=== PATIENT | female | born 1955 | race Caucasian/White ===

== ENCOUNTER 2019-08-25 14:39 | Outpatient (CLI) | payer MEDICARE, SELFPAY ==
--- NOTE | ~2019-08-25 | MM_ITS ---
EXAMINATION: MM screening rigo BI w braulio HISTORY: Screening mammogram, family history of breast cancer in her mother. TECHNIQUE: Craniocaudal and mediolateral oblique 3-D tomosynthesis images were obtained and synthetic 2-D images were generated. CAD analysis was submitted and interpreted. COMPARISON: 03/21/2018, 02/28/2018, 02/13/2017, 11/25/2015 BREAST PARENCHYMAL COMPOSITION: There are scattered areas of fibroglandular density. FINDINGS: There is no evidence of suspicious mass, calcification, or architectural distortion to sugg est malignancy in either breast. There has been no suspicious interval change. IMPRESSION: 1. No mammographic evidence of malignancy. 2. Recommend routine screening mammography in one year. Of note, patient is overdue for six month ult rasound follow-up of probably benign sonographically detected left breast masses. BI-RADS Category 1: Negative Reviewed, dictated and finalized at location A. IMPRESSION: 1. No mammographic evidence of malignancy. 2. Recommend routine screening mammography in one year. Of note, patient is ove rdue for six month ultrasound follow-up of probably benign sonographically dete cted left breast masses. BI-RADS Category 1: Negative
== END 2019-08-25 14:40 | disposition home or self-care (01) ==
PROVIDERS: PCP Internal Medicine; Visit Provider Internal Medicine
DX: Z12.31 Encounter for screening mammogram for malignant neoplasm of breast (principal)
CPT/HCPCS: 77063; 77067

== ENCOUNTER 2019-09-28 11:04 | Outpatient (CLI) | payer MEDICARE, SELFPAY ==
--- NOTE | ~2019-09-28 | US_ITS ---
US breast LT limited 09/28/2019 11:47 Indication: Follow-up left breast mass Procedure: High-resolution ultrasound of the left breast Comparison: Comparison to multiple prior studies sequentially, with oldest reviewed study dated 05/2018. Findings: There is a 2 mm cyst at left breast at 2:00, 3 cm from the nipple. At 2:00, 5 cm from the n ipple there is an oval hypoechoic nodule measuring 3 mm, without significant change from prior studie s. Impression: 1: Stable benign appearing left breast masses dating back to 03/31/2018. No sonographic evidence for m alignancy. Routine yearly screening mammogram and regular clinical breast examination are recommended. BI-RADS CATEGORY 2 - BENIGN FINDINGS Reviewed, dictated and finalized at location A. Impression: 1: Stable benign appearing left breast masses dating back to 03/31/2018. No sono graphic evidence for malignancy. Routine yearly screening mammogram and regular clinical breast examination are recommended. BI-RADS CATEGORY 2 - BENIGN FINDINGS
== END 2019-09-28 11:05 | disposition home or self-care (01) ==
PROVIDERS: PCP Internal Medicine; Visit Provider Internal Medicine
DX: R92.8 Other abnormal and inconclusive findings on diagnostic imaging of breast (principal)
CPT/HCPCS: 76642

== ENCOUNTER 2020-03-12 08:49 | Outpatient (CLI) | payer MEDICARE, SELFPAY ==
--- NOTE | ~2020-03-12 | DEXA_ITS ---
Bone Density Report Name: Cassandra Eddy Age: 65 Sex: Female Ethnicity: Black Date of : 1955 Indication: postmenopausal; height loss; prior fracture; Referring Provider: JACKIE BURKS Study: Bone densitometry was performed. Exam Date: March 12, 2020 Accession number: [id number] Bone Density: Region BMD T-score Z-score Classification AP Spine (L1, L2, L3) 1.405 3.5 4.7 Normal World Health Organization criteria for BMD impression classify patients as: Normal (T-score at or above -1.0), Osteopenia (T-score between -1.0 and -2.5), or Osteoporosis (T-score at or below -2.5). Previous Exams: Region Exam Age BMD T-score BMD Change BMD Change Date g/cm2 vs Baseline vs Previous AP Spine(L1, L2, L3) 03/12/2020 65 1.405 3.5 -0.031(-2.1%)# -0.101(-6.7%)* 02/28/2018 62 1.506 4.4 0.070(4.9%)# 0.070(4.9%)# 07/05/2009 54 1.436 3.8 *Denotes significance at 95% confidence level, LSC for AP Spine = 0.022 g/cm2 Clinical Information Provided by Patient: Have had a previous hip or vertebral fracture Has had a low trauma fracture Patient maximum height was 66 Menopause Age: 54 No regular weight bearing exercise Onset of menses at age 10 Number of children 3 Impression: The patient has normal bone mass. The patient has risk factors, including: previous fracture. The BMD for the AP Spine(L1, L2, L3) decreased, changing by -6.7% since the last DXA exam. Discussion: INCREASED RISK OF FRACTURE DUE TO HISTORY OF FRACTURE. The patient's previous fracture puts the patient at high risk of a future fracture. In untreated patients, the risk of osteoporotic fracture increases approximately two-fold for each 1.0 SD decrease in T-score. Low bone density is not the only risk factor for fracture; also consider factors such as patient's age, frailty or poor health, risk of falling, risk of injury, previous osteoporotic fracture, family history of osteoporosis, cigarette smoking, low body weight, etc. Not everyone with a low trauma fracture has osteoporosis; osteomalacia and other metabolic bone disorders should also be considered. Patients who have osteoporosis should be evaluated for specific diseases and conditions (secondary causes) that may cause or contribute to bone loss and fracture risk. National Osteoporosis Foundation (NOF) recommends pharmacologic intervention for patients with a prior hip or vertebral fracture regardless of BMD T-score. The patient should follow a healthful lifestyle (good nutrition with adequate calcium and vitamin D, and appropriate weight-bearing exercise). Follow-Up: Consider a repeat BMD and Vertebral Fracture Assessment (VFA) exam in 2 years or sooner if medically necessary, to reassess this patient's status.
== END 2020-03-12 08:50 | disposition home or self-care (01) ==
LOC: ANHIMG 08:53
PROVIDERS: PCP Internal Medicine; Visit Provider Obstetrics & Gynecology
DX: Z78.0 Asymptomatic menopausal state (principal)
CPT/HCPCS: 77080

== ENCOUNTER 2020-08-29 15:51 | Outpatient (CLI) | payer MEDICARE, SELFPAY ==
--- NOTE | ~2020-08-29 | MM_ITS ---
EXAMINATION: MM screening rigo BI w braulio HISTORY: Screening mammogram, family history of breast cancer in her mother. TECHNIQUE: Craniocaudal and mediolateral oblique 3-D tomosynthesis images were obtained and synthetic 2-D images were generated. CAD analysis was submitted and interpreted. COMPARISON: 08/25/2019, 03/21/2018, 02/28/2018, 02/13/2017 BREAST PARENCHYMAL COMPOSITION: There are scattered areas of fibroglandular density. FINDINGS: There is no evidence of suspicious mass, calcification, or architectural distortion to sugg est malignancy in either breast. There has been no suspicious interval change. IMPRESSION: 1. No mammographic evidence of malignancy. 2. Recommend routine screening mammography in one year. BI-RADS Category 1: Negative Reviewed, dictated and finalized at location A.
== END 2020-08-29 15:52 | disposition home or self-care (01) ==
LOC: ANHIMG 15:54
PROVIDERS: PCP Internal Medicine; Visit Provider Obstetrics & Gynecology
DX: Z12.31 Encounter for screening mammogram for malignant neoplasm of breast (principal)
CPT/HCPCS: 77063; 77067

== ENCOUNTER 2021-11-05 14:27 | Outpatient (CLI) | payer MEDICARE, SELFPAY ==
--- NOTE | ~2021-11-05 | MM_ITS ---
EXAMINATION: MM screening rigo BI w braulio HISTORY: Screening mammogram, family history of breast cancer in her mother. TECHNIQUE: Craniocaudal and mediolateral oblique 3-D tomosynthesis images were obtained and synthetic 2-D images were generated. CAD analysis was submitted and interpreted. COMPARISON: 08/29/2020, 08/25/2019 BREAST PARENCHYMAL COMPOSITION: There are scattered areas of fibroglandular density. FINDINGS: Scattered benign-appearing calcifications are present. There is no suspicious mass, calcifi cation, or architectural distortion to suggest malignancy in either breast. There has been no suspici ous interval change. IMPRESSION: 1. No mammographic evidence of malignancy. 2. Recommend routine screening mammography in one year. BI-RADS Category 2: Benign finding(s). Reviewed, dictated and finalized at location A.
== END 2021-11-05 14:28 | disposition home or self-care (01) ==
PROVIDERS: PCP Internal Medicine; Visit Provider Obstetrics & Gynecology
DX: Z12.31 Encounter for screening mammogram for malignant neoplasm of breast (principal)
CPT/HCPCS: 77063; 77067

== ENCOUNTER 2022-09-07 14:54 | Outpatient (CLI) | payer MEDICARE, SELFPAY ==
--- NOTE | ~2022-09-07 | DEXA_ITS ---
Bone Density Report Name: JEANCARLOS LONDONO Age: 67 Sex: Female Ethnicity: Black Date of : 1955 Indication: postmenopausal; screening for osteoporosis; height loss; prior fracture; cancer; Referring Provider: JACKIE BURKS Study: Bone densitometry was performed. Exam Date: September 07, 2022 Accession number: [id number] Bone Density: Region BMD T-score Z-score Classification AP Spine(L1, L2, L3) 1.441 3.8 5.2 Normal World Health Organization criteria for BMD impression classify patients as: Normal (T-score at or above -1.0), Osteopenia (T-score between -1.0 and -2.5), or Osteoporosis (T-score at or below -2.5). Previous Exams: Region Exam Age BMD T-score BMD Change BMD Change Date g/cm2 vs Baseline vs Previous AP Spine (L1-L3) 09/07/2022 67 1.441 3.8 -0.064 (-4.3%) 0.037 (2.6%)* 03/12/2020 65 1.405 3.5 -0.101 (-6.7%) -0.101 (-6.7%) 02/28/2018 62 1.506 4.4 *Denotes significance at 95% confidence level, LSC for AP Spine = 0.022 g/cm2 Clinical Information Provided by Patient: Have had a previous hip or vertebral fracture Has had a low trauma fracture Has used the following medications: Calcium Has the following medical conditions: Cancer Patient maximum height was 66 Menopause Age: 53 Does not regularly consume dairy products Onset of menses at age 10 Number of children 3 Impression: The patient has normal bone mass. The patient has risk factors, including: previous fracture. No significant bone loss was observed. Discussion: INCREASED RISK OF FRACTURE DUE TO HISTORY OF FRACTURE. The patient's previous fracture puts the patient at high risk of a future fracture. In untreated patients, the risk of osteoporotic fracture increases approximately two-fold for each 1.0 SD decrease in T-score. Low bone density is not the only risk factor for fracture; also consider factors such as patient's age, frailty or poor health, risk of falling, risk of injury, previous osteoporotic fracture, family history of osteoporosis, cigarette smoking, low body weight, etc. Not everyone with a low trauma fracture has osteoporosis; osteomalacia and other metabolic bone disorders should also be considered. Patients who have osteoporosis should be evaluated for specific diseases and conditions (secondary causes) that may cause or contribute to bone loss and fracture risk. National Osteoporosis Foundation (NOF) recommends pharmacologic intervention for patients with a prior hip or vertebral fracture regardless of BMD T-score. The patient should follow a healthful lifestyle (good nutrition with adequate calcium and vitamin D, and appropriate weight-bearing exercise). Follow-Up: Consider a repeat BMD and Vertebral Fracture Assessment (VFA) exam in 2 ye
== END 2022-09-07 14:55 | disposition home or self-care (01) ==
PROVIDERS: PCP Internal Medicine; Visit Provider Obstetrics & Gynecology
DX: Z78.0 Asymptomatic menopausal state (principal)
CPT/HCPCS: 77080

== ENCOUNTER → 2022-11-11 13:20 | Outpatient (CLI) | payer MEDICARE, SELFPAY ==
--- NOTE | ~2022-11-11 | MM_ITS ---
EXAMINATION: MM screening rigo BI w braulio HISTORY: Screening mammogram TECHNIQUE: Craniocaudal and mediolateral oblique 3-D tomosynthesis images were obtained and synthetic 2-D images were generated. CAD analysis was submitted and interpreted. COMPARISON: 11/05/2021, 08/29/2020 bilateral screening mammogram examinations BREAST PARENCHYMAL COMPOSITION: There are scattered areas of fibroglandular density. FINDINGS: Scattered bilateral benign calcifications are again noted. There is no evidence of suspicio us mass, calcification, or architectural distortion to suggest malignancy in either breast. There has been no suspicious interval change. IMPRESSION: 1. No mammographic evidence of malignancy. 2. Recommend routine screening mammography in one year. BI-RADS Category 2: Benign finding(s). Reviewed, dictated and finalized at location A.
== END ==
PROVIDERS: PCP Internal Medicine; Visit Provider Obstetrics & Gynecology
DX: Z12.31 Encounter for screening mammogram for malignant neoplasm of breast (principal)
CPT/HCPCS: 77063; 77067

== ENCOUNTER 2023-12-20 15:23 | Outpatient (CLI) | payer MEDICARE, SELFPAY ==
--- NOTE | ~2023-12-20 | MM_ITS ---
EXAMINATION: MM screening rigo BI w braulio HISTORY: Screening TECHNIQUE: Craniocaudal and mediolateral oblique 3-D tomosynthesis images were obtained and synthetic 2-D images were generated. CAD analysis was submitted and interpreted. COMPARISON: Comparison to multiple prior studies sequentially, with oldest reviewed study dated 02/28. BREAST PARENCHYMAL COMPOSITION: Not dense: There are scattered areas of fibroglandular density. FINDINGS: There is no evidence of suspicious mass, calcification, or architectural distortion to sugg est malignancy in either breast. There has been no suspicious interval change. IMPRESSION: 1. No mammographic evidence of malignancy. 2. Recommend routine screening mammography in one year. BI-RADS Category 1: Negative Reviewed, dictated and finalized at location B. [employer]
== END 2023-12-20 15:24 | disposition home or self-care (01) ==
LOC: ANHIMG 15:25
PROVIDERS: PCP Internal Medicine; Visit Provider Obstetrics & Gynecology
DX: Z12.31 Encounter for screening mammogram for malignant neoplasm of breast (principal)
CPT/HCPCS: 77063; 77067

== ENCOUNTER 2024-06-15 13:40 | Outpatient (CLI) | payer MEDICARE, SELFPAY ==
--- NOTE | ~2024-06-15 | CT_ITS ---
CT Scan of the Chest without Contrast: Clinical Indication: Pneumoconiosis, asbestos exposure Technique: Contiguous sections were acquired throughout the chest without intravenous contrast. Dose reduction technique was used on this scan by utilizing automated exposure control and iterative recon struction technique. The dose-length product (DLP) was 131.35 mGy-cm. Findings: There is no evidence of any significant mediastinal, hilar or axillary lymphadenopathy. Coronary vinita ry calcification present. There is no evidence of pleural or pericardial effusion. The lungs are clear. No pulmonary nodules or infiltrates are noted. Images through the upper abdomen reveal no abnormalities. Impression: No significant abnormalities seen. Reviewed, dictated and finalized at location . Impression: No significant abnormalities seen.
--- OUTSIDE RECORDS SUMMARY | 2024-06-15 14:33 | XMS_ITS | Clinical Summary ---
Author Organization [facility] Care Team Providers Care Folder Operator Name Role Phone Unavailable Primary Care Provider Unavailabl e Social History Tobacco Use Types Packs/Day Years Used Date Smoking Tobacco: Never Assessed Comments Unknown Sex and Gender Information Value Date Recorded Sex Assigned at Not on file Legal Sex Female 3:14 PM [employer]AL [employer] Gender Identity Not on file Sexual Orientation Not on file Plan of Treatment Health Maintenance Due Date Last Done Comments DEXA Bone Density 1955 Hepatitis C Virus (HCV) Screening 1955 TdaP Immunization 1955 Colonoscopy 1998 Colorectal Cancer Screening 1998 Cologuard 2003 Immunochemical Fecal Occult Blood 2003 Mammogram 2003 Zoster Immunization (1 of 2) 2003 Influenza Immunization (#1) 10/17/202312/16, 01/04/2019 SARS-COV-2 Immunization ( season) 2023 12/18/2020, 05/06/2020, 04/08/2020 Respiratory Syncytial Virus (RSV) Immunization (Adult) (1 - 1-dose 75+ series) 2028 Pneumococcal Immunization (5 0+ years) Completed 12/27/2019, 09/05/2018 Hepatitis B Immunization Aged Out No longer eligible based on patient's age to complete this topic Meningococcal Immunization (ACWY) Aged Out No longer eligible b ased on patient's age to complete this topic Rotavirus Immunization Aged Out No lo nger eligible based on patient's age to complete this topic
--- OUTSIDE RECORDS SUMMARY | 2024-06-15 14:33 | XMS_ITS | Clinical Summary ---
Author Organization [facility] Address [facility] [place] [address] Care Team Providers Care Boiler Reliner Name Role Phone Manolo Crawford MD Unavailable [phone] Manolo Crawford MD Primary Care Provider Breanna Aviles MD Unavailable [phone] Zach Kelly MD Unavailable [phone] Ana Mariee MD PhD Unavailable [phone] Fina Blackwood NP Unavailable [phone] Allergies Active Allergy Reactions Criticality Noted Date Comments Sulfamethoxazole-Trim ethoprim Rash Medium 08/24/2022 Diffuse erythematous pruritic rash with low grade fever Lisinopril Other (See comments) High 03/20/2020 swollen in face Medications OneTouch Ultra Test strip USE EVERY DAY 3 Active pravastatin (PRAVACHOL) 40 mg tabletIndications :hyperlipidemia Take 1 tablet (40 mg total) by mouth every morning 3 Active aspirin 81 mg enteric coated tabletIndications :heart health Take 1 tablet (81 mg total) by mouth every morning Active multivitamin-mine rals-lutein tablet Take 1 tablet by mouth 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 before breakfast Active OneTouch Delica Plus Lancet 30 gauge misc USE TO TEST BLOOD SUGAR TWICE DAILY 3 Active diphenhydrAMINE (BENADRYL) 25 mg capsule Take 1 tablet/capsule (25 mg total) by mouth every 4 (four) hours as needed for itching or allergies 40 capsule 3 Active Additional Information Patient not taking.Informant: Self, Reported on 03/30/2024 OneTouch Delica Plus Lanc Dev kit USE TO TEST BLOOD SUGARS TWICE DAILY 3 Active OneTouch Ultra2 Meter misc TEST BLOOD SUGARS DAILY 3 Active metoprolol XL (TOPROL-XL) 50 mg extended release tablet Take 1 tablet (50 mg total) by mouth daily 30 tablet 3 Active Additional Information Patient taking differently:50 mg oral2 times daily, Informant: Self, Reported on 03/30/2024 triamcinolone (KENALOG) 0.1 % cream Apply topically 2 (two) times a day To rash 453.6 g 3 Active Additional Information Patient not taking.Informant: Self, Reported on 03/30/2024 magnesium oxide (MAG-OX) 400 mg (241.3 mg elemental magnesium) tabletIndications :hypomagnesemia Take 1 tablet (400 mg total) by mouth 2 (two) times a day Active hydrOXYzine (ATARAX) 25 mg tabletIndications :Pruritus of Skin Take 1 tablet (25 mg total) by mouth 3 (three) times a day as needed for itching 20 tablet 3 4 Active Additional Information Patient not taking.Informant: Self, Reported on 03/30/2024 mometasone (ELOCON) 0.1 % creamIndications: skin rash Apply 1 Application topically daily as needed 4 Active oxyCODONE (ROXICODONE) 5 mg immediate release tabletIndications :Pain Take 1 tablet (5 mg total) by mouth every 4 (four) hours as needed for pain 10 tablet 4 Active Additional Information Patient not taking.Reported on 03/30/2024 acetaminophen 500 mg capsuleIndication s:Pain Take 2 capsules (1,000 mg total) by mouth every 6 (six) hours 30 tablet 4 Active Additional Information Patient not taking.Reported on 03/30/2024 ibuprofen (ADVIL,MOTRIN) 600 mg tablet Take 1 tablet (600 mg total) by mouth every 6 (six) hours as needed for pain 20 tablet 4 Active Additional Information Patient not taking.Reported on 03/30/2024 docusate sodium (COLACE) 100 mg capsuleIndication s:constipation Take 1 capsule (100 mg total) by mouth 2 (two) times a day for 7 days For constipation. 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) SHAKE LIQUID AND USE 1 SPRAY IN EACH NOSTRIL EVERY DAY NEEDED 4 Active azithromycin (ZITHROMAX) 250 mg tablet Take 1 tablet (250 mg total) by mouth daily 5 Active benzonatate (TESSALON) 200 mg capsule Take 1 capsule (200 mg total) by mouth 3 (three) times a day 5 Active Active Problems Problem Noted Date Diagnosed Date Peripheral vascular disease, unspecified 024 Renal cell cancer, right 06/18/2023 Right renal mass 04/21/2023 Renal mass 04/18/2023 Chemotherapy induced neutropenia 04/14/2023 Syncope and collapse 11/29/2022 Assessment & Plan (11/30/2022 3:29 PM CDT): Reported episode of syncope on 11/27. Not preceded by chest pain/palpitations, and no headache or dizziness I woke up on the ground . short episode of asymptomatic SVT on tele (6 beats) otherwise NSR. Fever and post chemo probably to blame. 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 Tmax 101 at home; 38.8 on admit with tachycardia, leukocytosis to 14.5, 99% neutrophils. CT CAP without overt source. UA w/o pyuria. RVP pending. Prior admit w/ neutropenic fever without source found. No lines/ports. Has hip replacement and pin in hip. Started on vanc/cefe in ED. Prior admits for neutropenic fever in ED, but now with elevated white count. Gallbladder and appendix surgical absent. LFTs stable but bili 1.4 from prior normal. Possible that fever is from her cancer itself but will initiate septic workup and empiric treatment. - cont vanc/cefe, add anaerobic coverage if not improving - f/u BCx - obtain RVP - Consider additional abdominal imaging/RUQ if elevated bilirubin does not improve - consider LP no other infectious source found given headache Anemia 10/06/2022 Assessment & Plan (10/06/2022 6:15 AM CDT): Recent baseline 8s, admitted at 7.5. No clinical signs of bleeding. Trend CBC and transfuse for Hgb 7.0. Consented on admit; picture in chart. Will check hemolysis and iron labs/ferritin. Neutropenic fever 08/23/2022 Assessment & Plan (08/24/2022 8:27 PM CDT): Patient presenting with headache, rash, and fever in setting of recent chemotherapy. ANC 1500. Normal lactate - Presume fever is in setting of drug rash per below. S/p Cefepime, now ANC recovered. Blood and urine cultures were unremarkable, RVP neg and CXR clear. -ANC now recovered. No localizing sx of infection \ -discussed with onc, no need for abx at [place] Drug rash 08/23/2022 Assessment & Plan (08/24/2022 8:25 PM CDT): - Presenting with fever and exanthem over trunk, arms, and proximal legs in setting of recently initiated cytarabine, acyclovir, and bactrim - Evaluation without elevated AST/ALT or eos on diff - Most consistent with drug exanthem, though confabulated by all three drugs initiated at the same time (favor bactrim given time onset) - Cytarabine rash has been shown to improve and not recur with subsequent administration. - Given diffuse rash with pruritus will favor oral prednisone at this time, continue 40mg to complete 5d course. Continue TMC cream Bid, benadryl q4 PRN -discussed with primary onc - most likely from bactrim. STOP bactrim. Added to allergy list. G6PD sent - was normal. Outpt onc to consider dapsone as alternative -per onc, will resume acyclovir at dc Pancytopenia due to chemotherapy 08/23/2022 Assessment & Plan (08/24/2022 8:29 PM CDT): Received C1 of R-JUSTINA (rituximab, bendamustine, cytarabine), last received chemo D4 on 08/12 Anemic, TCP, neutropenic. plt recovering. Hasn't needed transfusions HTN (hypertension) 08/23/2022 Assessment & Plan (10/06/2022 6:14 AM CDT): Home regimen metop 25mg XL - hold while concern for sepsis, restart as clinically able Assessment & Plan (08/23/2022 8:24 PM CDT): - Continue metoprolol T2DM (type 2 diabetes mellitus) 08/23/2022 Assessment & Plan (10/06/2022 6:13 AM CDT): A1C 6.8% - hold home metformin, LDSSI while inpatient - continue home pravastatin 40mg Assessment & Plan (08/24/2022 8:28 PM CDT): A1c 6.8. diet controlled at home. 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 Completed 4 cycles of R-JUSTINA with interim PET scan showing complete metabolic response. Started C5 11/26. Concern for RCC on CT scan 09/2022, primary team monitoring. OI ppx: Levaquin/ acyclovir Assessment & Plan (10/06/2022 6:13 AM CDT): Diagnosed earlier this year, currently on R-JUSTINA. 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 Has had fever in the past after chemotherapy. - [facility] onc c/s, appreciate recs and assistance Assessment & Plan (08/24/2022 8:26 PM CDT): Recently diagnosed in setting of new liver mass and established with Dr. Radha Olivera -Received C1 of R-JUSTINA (rituximab, bendamustine, cytarabine), last received chemo D4 on 08/12 - [place] [facility] Consult -OI ppx: Acv. Bactrim held as noted elsewhere Persons encountering health services in other specified circumstances 07/31/2022 Liver mass 06/26/2022 Hypertension 11/12/2011 Assessment & Plan (11/30/2022 3:30 PM CDT): Metoprolol increased to 50 mg, hold norvasc Thyroid activity decreased 11/12/2011 Diabetes mellitus 11/12/2011 Assessment & Plan (11/30/2022 3:30 PM CDT): A1c 6.8 last August, most recent 4.5. resume metformin Resolved Problems Problem Noted Date Diagnosed Date Resolved Date Neutropenic fever 11/29/2022 04/13/2023 Assessment & Plan (11/30/2022 3:25 PM CDT): T-max 102 11/28. Feels better today, no more fever spikes, negative respiratory pathogen PCR and negative UA, blood cultures remained negative >48 hrs. To continue post chemo Levaquin (already prescribed) will receive neulasta today Fever and chills 11/28/2022 11/29/2022 Assessment & Plan (11/28/2022 2:55 PM CDT): Patient presenting with headaches and fever up to 102 this am at home. Headaches have been intermittent off and on for several months. Is not neutropenic yet, RVP, CXR unremarkable. UA pending but has no urinary symptoms. Did have a very similar presentation after cycle 3 of chemotherapy, treated for neutropenic fever with no source found - will start cefepime, follow up cultures and UA - if remains afebrile and no source found after 48 hours may consider transition back to originally planned levaquin through [facility] Headache 08/23/2022 11/29/2022 Assessment & Plan (11/28/2022 2:56 PM CDT): Intermittent headache for past several months, mri in 10/07 with no [employer] involvement - cont esgic prn Assessment & Plan (08/23/2022 8:19 PM CDT): - Present for 3d without associated neck pain and resolves with Tylenol - Continue Tylenol - If prolonged chronicity can consider head imaging Chronic kidney disease (CKD) , stage III (moderate) 08/23/2022 04/18/2023 Assessment & Plan (10/06/2022 6:14 AM CDT): Baseline Cr 0.9-1.1, admitted at 1.1 - avoid nephrotoxics, renally dose medications, trend BMP, monitor Is/Os Assessment & Plan (08/23/2022 8:19 PM CDT): - Cr bL ~1.0 - presenting Cr 1.22 - Avoid nephrotoxins, renal-dose meds Encounters Date Type Department Care Team Description 03/30/2024 9:00 AM RED MUD THICKENER OPERATOR Office Visit [facility] [address] [place] [phone] Fina Blackwood NP 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) (Primary Dx) 03/30/2024 8:45 AM RED MUD THICKENER OPERATOR Lab [facility] [place] - Lab Collection [facility] [place] Floor [address] [place] [address] 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) 03/30/2024 8:30 AM RED MUD THICKENER OPERATOR Lab [facility] Lab [address] [place] [phone] 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) from Last 3 Months Immunizations Immunization Administration Dates Next Due Influenza, Quadrivalent, Hig h Dose, Preservative Free, Intrr 12/27/2019 Influenza, Trivalent, High D ose, Split, Preservative Free, Intramuscular 01/04/2019 Pneumococcal Conjugate PCV 13 09/05/2018 Pneumococcal Polysaccharide PPV23 12/27/2019 Surgical History Surgery Date Site/Laterality Comments CHOLECYSTECTOMY HIP ARTHROPLASTY ROTATOR CUFF REPAIR TOTAL KNEE ARTHROPLASTY Bilateral US GUIDED BIOPSY LYMPH NODE SUPERFICIAL LEFT 07/29/2022 N/A Medical History Medical History Date Comments Heart palpitations Liver mass Hypertension T2DM (type 2 diabetes mellitus) (HCC) HLD (hyperlipidemia) Mantle cell lymphoma (HCC) Family History Medical History Relation Name Comments Diabetes Father Heart disease Father Hypertension Father gynecologic cancer Father's Sister 1 uncl ear whether uterine or ovarian Kidney cancer Half-Brother Breast cancer Mother Breast cancer Mother's Sister 1 Fibroids Sister 1 Kidney cancer Sister [address] Michelle rosa Thyroid cancer Sister 2 Anesthesia problems Neg Hx Malig Hypertension Neg Hx Malig Hyperthermia Neg Hx Pseudochol deficiency Neg Hx Relation Name Status Comments Father Father's Brother Alive Father's Sister 1 Father's Sister 2 Father's Sister 3 Father's Sister 4 Alive Half-Brother Mother Mother's Brother 1 Alive Mother's Brother 2 Alive Mother's Brother 3 Alive Mother's Sister 1 Alive Mother's Sister 2 Alive Mother's Sister 3 Other Sister 1 Sister 2 Alive Social History Tobacco Use Types Packs/Day Years Used Date Smoking Tobacco: Former Cigarettes 1 25 0 07/16/1974 - 07/17/1999 Smokeless Tobacco: Never Tobacco Cessation:Counseling Given: Not Answered Alcohol Use Standard Drinks/Week Comments Not Currently 0 (1 standard drink = 0.6 oz pur e alcohol) Social Connection and Isolation Panel [NHANES] A nswer Date Recorded In a typical week, how many times do you talk on the phone with family, friends, or neighbors? Three times a week 11/30/19 How often do you get togethe r with friends or relatives? Three times a week 11/29/2022 How often do you attend chur ch or congregational services? 1 to 4 times per year 11/29/2022 Do you belong to any clubs o r organizations such as judaism groups, unions, fraternal or athletic groups, or school groups? Yes 11/29/2022 How often do you attend meet ings of the clubs or organizations you belong to? Never 11/29/2022 Are you , , di vorced, , never , or living with a partner? 11/29/2022 AUDIT-C Answer Date Recorded Q1: How often do you have a drink containing alcohol? Never 06/08/2023 Q2: How many drinks containi ng alcohol do you have on a typical day when you are drinking? Patient does not drink Q3: How often do you have si x or more drinks on one occasion? Never 06/08/2023 Overall Financial Resource Strain (CARDIA) Answe r Date Recorded How hard is it for you to pa y for the very basics like food, housing, medical care, and heating? Not hard at all 11/29/2022 PHQ-2 Answer Date Recorded PHQ-2 Total Score 0 10/08/2022 Hunger Vital Sign Answer Date Recorded Within the past 12 months, y ou worried that your food would run out before you got the money to buy more. Never true 11/30/19 Within the past 12 months, t he food you bought just didn't last and you didn't have money to get more. Never true 11/29/2022 PRAPARE - Transportation Answer Date Re corded In the past 12 months, has l ack of transportation kept you from medical appointments or from getting medications? No 11/15 In the past 12 months, has l ack of transportation kept you from meetings, work, or from getting things needed for daily living? No 11/29/2022 Housing Stability Vital Sign Answer Luis e Recorded In the last 12 months, was t here a time when you were not able to pay the mortgage or rent on time? No 11/29/2022 In the last 12 months, how many places have you lived? 1 11/29/2022 In the last 12 months, was t here a time when you did not have a steady place to sleep or slept in a halfway (including now)? No 11/29/2022 Personal Safety Answer Date Recorded Have you ever been in or are you currently in a harmful physical or emotional relationship or is someone making you feel afraid or unsafe? Denies 06/08/2023 Comments No Sex and Gender Information Value Date Recorded Sex Assigned at Not on file Legal Sex Female 1:49 AM CDT Gender Identity Not on file Sexual Orientation Not on file Obstetrics History Last Filed Vital Signs Vital Sign Reading Time Taken Comments Blood Pressure 147/75 03/30/2024 8:55 AM RED MUD THICKENER OPERATOR Pulse 72 03/30/2024 8:55 AM RED MUD THICKENER OPERATOR Temperature 36.4 C (97.6 F) 03/30/2024 8:55 AM RED MUD THICKENER OPERATOR Respiratory Rate 18 03/30/2024 8:55 AM RED MUD THICKENER OPERATOR Oxygen Saturation 98% 03/30/2024 8:55 AM RED MUD THICKENER OPERATOR Inhaled Oxygen Concentration - - Weight 78.1 kg (172 lb 3.2 oz) 03/30/2024 8:55 A M RED MUD THICKENER OPERATOR Height 161.2 cm (5' 3.47 ) 03/30/2024 8:55 AM CS T Body Mass Index 30.06 03/30/2024 8:55 AM RED MUD THICKENER OPERATOR Plan of Treatment Health Maintenance Due Date Last Done Comments Albumin Creatinine Ratio, Urine 1953 Breast Cancer Screening-Mammogram 1953 Colon Cancer Screening-Colonoscopy 1955 Osteoporosis Screening-Bone Density Scan 1953 Dilated Eye Exam 1953 Foot Exam 1953 DTaP/Tdap/Td Vaccine (1 - Tdap) 1964 Zoster Vaccine (1 of 2) 1972 Well Visit 65+ 2018 Lipid Panel 08/25/2023 08/24/2022 Depression Screening 10/06/2023 10/05/2022 Covid-19 Vaccine (5 - 2023-2 5 season) 2023 03/13/2022, 12/18/2020, 05/06/2020, Additional history exists Hemoglobin A1C 11/24/2023 05/25/2023, 11/15, 08/23/2022, Additional history exists Fall Risk Assessment 06/10/2024 06/11/2023 Influenza Vaccine (Season Ended) 2024 12/27/19, 01/04/2019 eGFR 03/30/2025 03/30/2024, 12/17, 10/07/2023, Additional history exists Pneumococcal vaccine 65+ Completed 12/27/2019, 08/16 Hepatitis B Screening Completed 07/21/2022 Hepatitis C Screening Completed 07/21/2022 Medical Devices Implanted Type Area Filler Room Attendant Device Identifier Shelf Expiration Date Model / Serial / Lot [employer] Vicryl 6x6in Knit Woven Mesh Surgical mm - [id number] Implanted:Qty : 1 on 06/08/2023 by Zach Kelly MD at [facility] Mesh Right: Kidney [employer] [id number] 05/15/2025 [id number] / / [id number] Procedures Procedure Name Priority Date/Time Associated Diagnosis Comments EGFR Routine 03/30/2024 8:46 AM RED MUD THICKENER OPERATOR 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) DIFFERENTIAL AUTO Routine 03/30/2024 8:4 6 AM RED MUD THICKENER OPERATOR 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) CBC WITH AUTO DIFFERENTIAL Routine 03/30/2024 8:46 AM RED MUD THICKENER OPERATOR 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) COMPREHENSIVE METABOLIC PANEL Routine 03/30/2024 8:46 AM RED MUD THICKENER OPERATOR 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) LACTATE DEHYDROGENASE Routine 03/30/2024 8:46 AM RED MUD THICKENER OPERATOR 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 73 m2 Comment: Interpretive Data Reference Interval Normal >/= 90 mL/min/1.73m2 Mildly decreased* 60 - 89 mL/min/1.73m2 Mildly to moderately decreased 45 - 59 mL/min/1.73m2 Moderately to severely decreased 30 - 44 mL/min/1.73m2 Severely decreased 15 - 29 mL/min/1.73m2 Kidney Failure < 15 mL/min/1.73m2 *Relative to young adult level Estimated glomerular filtration rate is determined by the 2020 CKD-EPI equation recommended by the National Kidney Foundation (A Unifying Approach to GFR Estimation: Recommendations of the NKF-ASK Task Force on Reassessing the Inclusion of Race in Diagnosing Kidney Disease, JASN 2020). The CKD-EPI equation should not be used for patients with unstable renal function and has not been validated in children and those over 70. Current interpretive data was last reviewed 2020. Blood 03/30/2024 8:46 AM RED MUD THICKENER OPERATOR 03/30/2024 9:10 AM RED MUD THICKENER OPERATOR us Breanna Aviles MD LAB BLOOD ORDERABLES Final Re sult [facility] Department [place] [address] * (ABNORMAL) Differential, auto (03/30/2024 8:46 AM RED MUD THICKENER OPERATOR) Neutrophil abs 3.9 1.5 - 6.5 K/cumm Comment:Testing performed by : [facility], [address] [place], [place] [phone] Lymphocyte abs 0.6(L) 0.8 - 3.3 K/cumm [facility] Comment:Testing performed by : [facility], [address] [place] [address] Monocyte abs 0.7 0.2 - 0.8 K/cumm [facility] Comment:Testing performed by : [facility], [address] [place] [address] Eosinophil abs 0.3 0.0 - 0.5 K/cumm [facility] Comment:Testing performed by : [facility], [address] [place] [address] Basophil abs 0.0 0.0 - 0.1 K/cumm [facility] Comment:Testing performed by : [facility], [address] [place] [phone] Neutrophil pct 70.9 % [facility] Comment: Interpretive Data Percent cell count reference ranges are not reported, since discordance with absolute values may lead to misinterpretation of CBC data. Current Interpretive Data was last revised on 2017. Testing performed by: [facility] [place]Note 2[facility], [address] [place], [place] [id number] Lymphocyte pct 10.6 % [facility] Comment: Interpretive Data Percent cell count reference ranges are not reported, since discordance with absolute values may lead to misinterpretation of CBC data. Current Interpretive Data was last revised on 2017. Testing performed by: [facility] [place]Note 2[facility], [address] [place], [place] [id number] Monocyte pct 12.0 % [facility] Comment: Interpretive Data Percent cell count reference ranges are not reported, since discordance with absolute values may lead to misinterpretation of CBC data. Current Interpretive Data was last revised on 2017. Testing performed by: [facility], [address] [place] [address] Eosinophil pct 6.0 % [facility] Comment: Interpretive Data Percent cell count reference ranges are not reported, since discordance with absolute values may lead to misinterpretation of CBC data. Current Interpretive Data was last revised on 2017. Testing performed by: [facility], [address] [place] [phone] Basophil pct 0.5 % [facility] Comment: Interpretive Data Percent cell count reference ranges are not reported, since discordance with absolute values may lead to misinterpretation of CBC data. Current Interpretive Data was last revised on 2017. Testing performed by: [facility], [address] [place] [address] Blood 03/30/2024 8:46 AM RED MUD THICKENER OPERATOR 03/30/2024 9:06 AM RED MUD THICKENER OPERATOR Breanna Aviles MD LAB BLOOD ORDERABLES Final Re sult [facility] [place] [address] * CBC with auto differential (03/30/2024 8:46 AM RED MUD THICKENER OPERATOR) WBC 5.5 3.8 - 9.9 K/cumm Comment:Testing performed by : [facility], [address] [place] [address] Hgb 12.5 11.9 - 15.5 g/dL [facility] Comment:Testing performed by : [facility], [address] [place] [address] Hct 38.3 35.6 - 45.5 % [facility] Comment:Testing performed by : [facility], [address] [place] [address] Plt 190 150 - 400 K/cumm CERELSA BJ Comment:Testing performed by : [facility], [address] [place] [address] MPV 7.4 6.8 - 10.4 fL CERNER BJ Comment:Testing performed by : [facility], [address] [place] [address] RBC 4.08 3.90 - 5.20 M/cumm CERELSA BJ Comment:Testing performed by : [facility], [address] [place] [address] MCV 94.0 81.3 - 96.4 fL CERELSA BJ Comment:Testing performed by : [facility], [address] [place] [address] MCH 30.6 27.1 - 33.3 pg CERNER BJ Comment:Testing performed by : [facility], [address] [place] [address] MCHC 32.5 32.3 - 35.7 g/dL CERNER BJ Comment:Testing performed by : [facility], [address] [place] [address] RDW CV 14.8 11.1 - 14.9 % CERNER BJ Comment:Testing performed by : [facility], [address] [place] [phone] NRBC abs 0.00 0.00 - 0.01 K/cumm [facility] Comment:Testing performed by : [facility], [address] [place] [id number] Blood 03/30/2024 8:46 AM RED MUD THICKENER OPERATOR 03/30/2024 9:06 AM RED MUD THICKENER OPERATOR Breanna Aviles MD LAB BLOOD ORDERABLES Final Re sult Performing Organization Address City/[facility]/ZIP Co de Phone Number [facility] Department [place] [address] * Lactate dehydrogenase (LD) (03/30/2024 8:46 AM RED MUD THICKENER OPERATOR) [facility] Lactate dehydrogenase (LDH) 189 100 - 250 Units/L Blood 03/30/2024 8:46 AM RED MUD THICKENER OPERATOR 03/30/2024 9:10 AM RED MUD THICKENER OPERATOR Breanna Aviles MD LAB BLOOD ORDERABLES Final Re sult Performing Organization Address City/[facility]/ZIP Co de Phone Number [facility] Department [place] [address] * (ABNORMAL) Comprehensive metabolic panel (03/30/2024 8:46 AM RED MUD THICKENER OPERATOR) [facility] Sodium 142 135 - 145 mmol/L Potassium, pl 4.8 3.3 - 4.9 mmol/L [facility] Chloride 106 97 - 110 mmol/L [facility] CO2 29 22 - 32 mmol/L [facility] Anion gap 7 2 - 15 mmol/L [facility] BUN 23 6 - 25 mg/dL [facility] Creatinine 1.21(H) 0.60 - 1.10 mg/dL [facility] Glucose 90 70 - 199 mg/dL [facility] Comment: Interpretive Data Fasting glucose >/= 126 mg/dl is diagnostic for diabetes. Fasting is defined as no caloric intake for at least 8 hours. Fasting glucose between 100 mg/dl to 125 mg/dl is diagnostic of prediabetes. In a patient with classic symptoms of hyperglycemia or hyperglycemic crisis, a random glucose >/= 200 mg/dl is diagnostic for diabetes. In the absence of unequivocal hyperglycemia, results should be confirmed by repeat testing. The classification and Diagnosis of Diabetes Diabetes Care 2021; 46: S19-S40. Current interpretive data was last revised 2022. Calcium 9.9 8.5 - 10.3 mg/dL [facility] Bilirubin, total 0.5 0.1 - 1.2 mg/dL [facility] Protein, pl 8.0 6.5 - 8.5 g/dL [facility] Albumin 4.4 3.5 - 5.0 g/dL [facility] Alk phos 88 40 - 130 Units/L [facility] ALT 18 7 - 45 Units/L [facility] AST 28 10 - 45 Units/L [facility] Blood 03/30/2024 8:46 AM RED MUD THICKENER OPERATOR 03/30/2024 9:10 AM RED MUD THICKENER OPERATOR Breanna Aviles MD LAB BLOOD ORDERABLES Final Re sult [facility] Department [place] [address] * (ABNORMAL) Hemoglobin A1c (05/25/2023 1:57 PM CDT) Hgb A1C 5.9(H) 4.0 - 5.6 % Estimated Average Glucose 123 mg/dL [facility] Comment: The ADA recommends reporting an estimated Average Glucose (eAG) with all Hemoglobin A1c results using the equation derived from a study of 507 normal and diabetic adults. Minority populations were underrepresented and children were not included. (Diabetes Care 2020; 43(S1): S66-S76). The eAG is not equivalent to a fasting glucose. Blood 05/25/2023 1:57 PM CDT 05/25/2023 2:27 PM CDT us Mile Sanchez NP LAB BLOOD ORDERABLES Fi nal Result [facility] Department [place] [address] * Lipid panel (08/24/2022 4:39 AM CDT) Cholesterol 129 30 - 199 mg/dL [facility] Comment: Interpretive Data Ages < or = 19 years Acceptable: <170 mg/dL Borderline high: 170-199 mg/dL High: >or= 200 mg/dL Ages > or = 20 years Desirable: <200 mg/dL Borderline high: 200-239 mg/dL High: >or= 240 mg/dL Literature References: 1. Expert Panel on Integrated Guidelines for Cardiovascular Health and Risk Reduction in Children and Adolescents. Pediatrics 2011;128:S213 2. NCEP Expert Panel. Circulation 2004;110:227 Current Interpretive Data was last revised on 2017. Triglycerides 116 <=149 mg/dL [facility] Comment: Interpretive Data Ages < or = 9 years Acceptable: <75 mg/dL Borderline high: 75-99 mg/dL High: >or= 100 mg/dL Ages 10 to 20 years Acceptable: <90 mg/dL Borderline high: 90-129 mg/dL High: >or= 130 mg/dL Ages > or = 20 years Desirable: <150 mg/dL Borderline high: 150-199 mg/dL High: 200-499 mg/dL Very high: >or= 499 mg/dL Literature References: 1. Expert Panel on Integrated Guidelines for Cardiovascular Health and Risk Reduction in Children and Adolescents. Pediatrics 2011;128:S213 2. NCEP Expert Panel. Circulation 2004;110:227 Current Interpretive Data was last revised on 2017. HDL 41 >=40 mg/dL [facility] Comment: Interpretive Data Ages < or = 19 years Acceptable: >45 mg/dL Borderline low: 40-45 mg/dL Low: <40 mg/dL Ages > or = 20 years Desirable: >or= 60 mg/dL Low: <40 mg/dL Literature References: 1. Expert Panel on Integrated Guidelines for Cardiovascular Health and Risk Reduction in Children and Adolescents. Pediatrics 2011;128:S213 2. NCEP Expert Panel. Circulation 2004;110:227 Current Interpretive Data was last revised on 2017. LDL, calculated 65 <=129 mg/dL [facility] Comment: Interpretive Data Ages < or = 19 years Acceptable: <110 mg/dL Borderline high: 110-129 mg/dL High: >or= 130 mg/dL Ages > or = 20 years Optimal: <100 mg/dL Near optimal: 100-129 mg/dL Borderline high: 130-159 mg/dL High: >160 mg/dL Literature References: 1. Expert Panel on Integrated Guidelines for Cardiovascular Health and Risk Reduction in Children and Adolescents. Pediatrics 2011;128:S213 2. NCEP Expert Panel. Circulation 2004;110:227 Current Interpretive Data was last revised on 2017. Non-HDL Cholesterol 88 mg/dL [facility] Comment: Interpretive Data Ages < or = 19 years Acceptable: <120 mg/dL Borderline high: 120-144 mg/dL High: >145 mg/dL Ages > or = 20 years When triglycerides are >200 mg/dL, Non-HDL cholesterol is a secondary target of therapy with treatment goals that are 30 mg/dL greater than the LDL cholesterol target. Literature References: 1. Expert Panel on Integrated Guidelines for Cardiovascular Health and Risk Reduction in Children and Adolescents. Pediatrics 2011;128:S213 2. NCEP Expert Panel. Circulation 2004;110:227 Current Interpretive Data was last revised on 2017. Chol/HDL ratio 3 [facility] Blood 08/24/2022 4:39 AM CDT 08/24/2022 4:57 AM CDT us Omar Soria MD LAB BLOOD ORDERABLES Sybil garcía Result [facility] [place] [address] * Hepatitis C antibody (07/21/2022 8:47 AM CDT) Hep C Ab Nonreactive Nonreactive [facility] Comment:Antibodies to HCV no t detected. Does NOT exclude the possibility of recent exposure to HCV. Current interpretive data was last revised on 21 Blood 07/21/2022 8:47 AM CDT 07/21/2022 9:00 AM CDT Breanna Aviles MD LAB MICROBIOLOGY - GENERAL OR DERABLES Final Result [facility] Department [place] [address] from Last 3 Months or Most Recently Relevant to Health Maintenance Insurance [facility] MEDICARE ADVANTAGE [facility] Address: [address] [address] [place] [address] [facility] MEDICARE ADVANTAGE [facility]IC[facility] Address: [address] [address] [place] [address] Advance Directives For more information, please contact: [phone] * Full Code (Latest Code Status on File) Date Activated Date Inactivated Comments 06/08/2023 1:23 PM 06/11/2023 6:12 PM * Full Code Date Activated Date Inactivated Comments 11/28/2022 8:02 PM 11/30/2022 8:40 PM * Full Code Date Activated Date Inactivated Comments 10/06/2022 5:56 AM 10/16/2022 9:41 PM * Full Code Date Activated Date Inactivated Comments 08/23/2022 8:12 PM 08/24/2022 10:08 PM * Full Code Date Activated Date Inactivated Comments 07/08/2022 2:23 PM 07/08/2022 8:45 PM Care Teams Boiler Reliner Relationship Specialty Start Date End Date Manolo Crawford MD [address] [address] PCP - General Internal Medicine 06/17/22 Manolo Crawford MD [address] [address] Referring Physician Internal Medicine 06/16/22 Breanna Aviles MD [address] [address] Medical Oncologist/Practice Lead Medical Oncology 10/09/22 Zach Kelly MD [address] [place] [address] Consulting Physician Urology 06/11/23 Ana Mariee MD PhD [address] [facility] [address] DIV IM [place] [address] Consulting Physician Medical Oncology 08/17/23 BlackwoodFina briceno NP [address] [place] [address] Nurse Practitioner Medical Oncology 08/17/23
--- OUTSIDE RECORDS SUMMARY | 2024-06-15 14:33 | XMS_ITS | Continuity of Care Document ---
Author Organization [facility] Address [address] [place] [address] Phone Care Team Providers Care Wood Lathe Operator Name Role Phone Leny JAUREGUI, Jimmie Unavailable Unavailable Procedures Procedure Date Work/medical disability examination BRIAN X-ray exam of knee, 1 or2 views 011 X-ray exam of both knees, standing Prolonged serv, w/o contact, 1st hr Advance Directives Directive Yes / No Effective Date File Name No Information Encounters Encounter Description Practice Location Reason(s) For Visit Diagnoses Date Provider Providers Copied on Encounter Work/medical disability examination [facility], [address] [address], [place], [place], [id number], [place] tel:[phone] [facility]LEG Leny Samuel. [address] [facility] [address], [place], [place], [id number], [place]. tel:[phone] Family History Family Member Type Diagnosis Age At Onset No Information Payers Payer name Insurance type Covered green party ID Authoriza tion(s) [employer] [id number] Social History Type Description Quantity Date Captured Comments Sex Female Smoking Status No Information Chief Complaint And Reason For Visit No Information Reason For Referral Reason For Referral No Information History Of Present Illness Encounter Date Complaint History Of Prese nt Illness No Information Functional Status Date Functional Assessmen t No Information Instructions Date Instruction Additional Infor mation No Information Assessments Type Assessment Date No Information Patient Care Teams Name Effective Dates (start - stop) Status Members No Information
--- OUTSIDE RECORDS SUMMARY | 2024-06-15 14:33 | XMS_ITS ---
Author Organization [facility] Address [facility] [place] [address] Care Team Providers Care Program Services Planner Name Role Phone Manolo Crawford MD Unavailable [phone] Manolo Crawford MD Primary Care Provider Breanna Aviles MD Unavailable [phone] Zach Kelly MD Unavailable [phone] Ana Mariee MD PhD Unavailable [phone] Fina Blackwood SAFE EXPERT Unavailable [phone] Active Problems Problem Noted Date Diagnosed Date [...] 6:12 AM CDT): Received chemotherapy three days RUBY ON RAILS DEVELOPER; developed fever and headache two days RUBY ON RAILS DEVELOPER. Tmax 101 at home; 38.8 on admit [...] with onc, no need for abx at dc Drug rash 08/23/2022 Assessment & Plan (08/24/2022 [...] on R-JUSTINA. Most recent chemo 3 days RUBY ON RAILS DEVELOPER. Has had fever in the past after chemotherapy. - [facility], appreciate recs and assistance Assessment & Plan (08/24/2022 8:26 PM CDT): Recently diagnosed in setting of new liver mass and established with Dr. Radha Olivera -Received C1 of R-JUSTINA (rituximab, bendamustine, cytarabine), last received chemo D4 on 08/12 - [facility] -OI ppx: Acv. Bactrim held as noted elsewhere Persons encountering health services in other specified circumstances 07/31/2022 Liver mass 06/26/2022 Hypertension 11/12/2011 Assessment & Plan (11/30/2022 3:30 PM CDT): Metoprolol increased to 50 mg, hold norvasc Thyroid activity decreased 11/12/2011 Diabetes mellitus 11/12/2011 Assessment & Plan (11/30/2022 3:30 PM CDT): A1c 6.8 last August, most recent 4.5. 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 Filgrastim or BIOSIMILAR Subcutaneous* Plan Start Date:04/16/2023 Plan Provider:Breanna Aviles MD Linked Problems Chemotherapy induced neutrop enia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) Treatment Medications No medications scheduled. 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 Past Treatment and Therapy Plans Oncology Chemotherapy Treatment Plan Name Start Date Discontinue Date Treatment Medications Discontinue Reason Plan Provider Cycles R-JUSTINA: RiTUXimab / Bendamustine / Cytarabine 28 Day Cycles - Mantle Cell Lymphoma 3 02/04/2023 bendamustine (BENDEKA) IVPB in 50 mLcytarabine (LAW-C) IVPB (for doses <1,000 mg/m2)cytarabin e (LAW-C) IVPB (for doses > 1,000 mg/m2)cytarabin e (LAW-C,CYTOSAR- U)riTUXimab-pvv r (RUXIENCE) IVPB in 500 mL Therapy Complete Breanna Aviles MD 6 of 6 cycles started Lifetime Dose Tracking * Chemical Lifetime Dose Automatic Entry Manual Entr y DLP 3,898.8 mGycm 3,898.8 mGycm 0 mGycm Resolved Problems Problem Noted Date Diagnosed Date [...] several months, mri in 10/07 with no MOVING PICTURE PRODUCER involvement - cont esgic prn Assessment & [...]
--- OUTSIDE RECORDS SUMMARY | 2024-06-15 14:33 | XMS_ITS | Encounter Summary ---
Author Organization [facility] Address [address] [place] [address] Phone Care Team Providers Care Elocution Teacher Name Role Phone Manolo Crawford MD Unavailable [phone] Manolo Crawford MD Primary Care Provider Breanna Aviles MD Unavailable [phone] Zach Kelly MD Unavailable [phone] Ana Mariee MD PhD Unavailable [phone] Fina Blackwood NP Unavailable [phone] Encounter Details Date Type Department Care Team (Latest Contact Info) Description 11/02/2022 Orders Only [facility] Scanning, Provider Social History Tobacco Use Types Packs/Day Years Used Date Smoking Tobacco: Former Cigarettes 1 25 0 07/16/1974 - 07/17/1999 Smokeless Tobacco: Never Alcohol Use Standard Drinks/Week Comments Not Currently 0 (1 standard drink = 0.6 oz pur e alcohol) Social Connection and Isolation Panel [NHANES] A nswer Date Recorded In a typical week, how many times do you talk on the phone with family, friends, or neighbors? Three times a week 10/09/19 How often do you get togethe r with friends or relatives? Three times a week 10/08/2022 How often do you attend chur or yazidism services? 1 to 4 times per year 10/08/2022 Do you belong to any clubs o r organizations such as anabaptist groups, unions, fraternal or athletic groups, or school groups? Yes 10/08/2022 How often do you attend meet ings of the clubs or organizations you belong to? Never 10/08/2022 Are you , , di vorced, , never , or living with a partner? 10/08/2022 AUDIT-C Answer Date Recorded Q1: How often do you have a drink containing alcohol? Never 07/15/2022 Q2: How many drinks containi ng alcohol do you have on a typical day when you are drinking? Patient does not drink Q3: How often do you have si x or more drinks on one occasion? Never 07/15/2022 Overall Financial Resource Strain (CARDIA) Answe r Date Recorded How hard is it for you to pa y for the very basics like food, housing, medical care, and heating? Not hard at all 10/08/2022 PHQ-2 Answer Date Recorded PHQ-2 Total Score 0 10/08/2022 Hunger Vital Sign Answer Date Recorded Within the past 12 months, y ou worried that your food would run out before you got the money to buy more. Never true 10/09/19 23 Within the past 12 months, t he food you bought just didn't last and you didn't have money to get more. Never true 10/08/2022 PRAPARE - Transportation Answer Date Re corded In the past 12 months, has l ack of transportation kept you from medical appointments or from getting medications? No 09/16 In the past 12 months, has l ack of transportation kept you from meetings, work, or from getting things needed for daily living? No 10/08/2022 Housing Stability Vital Sign Answer Luis e Recorded In the last 12 months, was t here a time when you were not able to pay the mortgage or rent on time? No 10/08/2022 In the last 12 months, how many places have you lived? 1 10/08/2022 In the last 12 months, was t here a time when you did not have a steady place to sleep or slept in a group home (including now)? No 10/08/2022 Comments No Sex and Gender Information Value Date Recorded Sex Assigned at Not on file Legal Sex Female 1:49 AM CDT Gender Identity Not on file Sexual Orientation Not on file documented as of this encounter Plan of Treatment Not on file documented as of this encounter Procedures Procedure Name Priority Date/Time Associated Diagnosis Comments CARDIOLOGY DOCUMENT SCAN 11/02/2022 documented in this encounter Results * CARDIOLOGY DOCUMENT SCAN (11/02/2022) Anatomical Region Laterality Modality Other us Provider Scanning CV CARDIAC SERVICES PROCEDURES Final Result documented in this encounter Visit Diagnoses Not on filedocumented in this encounter Additional Health Concerns Infection Onset Date Last Indicated Resolved Time COVID: Suspected 11/28/2022 11/28/2022 11/28/2022 9:38 AM CDT documented as of this encounter Care Teams Elocution Teacher Relationship Specialty Start Date End Date Manolo Crawford MD [address] [address] PCP - General Internal Medicine 06/17/22 Manolo Crawford MD [address] [address] Referring Physician Internal Medicine 06/16/22 Breanna Aviles MD [address] [address] Medical Oncologist/Oven Attendant Medical Oncology 10/09/22 Zach Kelly MD [address] [place] [address] Consulting Physician Urology 06/11/23 Ana Mariee MD PhD [address] [facility] [address] DIV IM [place] [address] Consulting Physician Medical Oncology 08/17/23 Fina Blackwood NP [address] [place] [address] Nurse Practitioner Medical Oncology 08/17/23 documented as of this encounter
--- OUTSIDE RECORDS SUMMARY | 2024-06-15 14:33 | XMS_ITS ---
vg HR: 67BPM; Max sinus HR: 129BPM; Min HR: 42BPM. S upraventricular Tachycardia was documented with a maximum heart r ate of 152BPM (Strip 1, page 5) and duration of 3.8 seconds (Strip 3 , page 5). V entricular ectopy was documented in the form of isolated beats. A trial ectopy was documented in the form of triplets, couplets, and i solated beats. //TL December 22, 2019 I mproved since she has stopped taking stimulants such as caffeine. June 21, 2020 g et tele monitor, likely has SVT Cintia Ortega MD Cardiology: N eeds to see ENT. Was placed on meclizine. Was in the ER, BP was OK. Head CT was negative. D/C HCTZ and potassium. Cintia Ortega MD Cardiology: 2 018 cath IMPRESSION: 1 . Minimal CAD 2 . Normal LV fxn 3 . Normal SBP and LVEDP Cintia Ortega MD Cardiology Follow up : S till gets palpitations. Stopped all caffeine intake. ZIO 11/2017 R hythm: Sinus Rhythm with four Supraventricular Tachycardia events, r are Ventricular ectopics, and rare Supraventricular ectopics. A vg HR: 67BPM; Max sinus HR: 129BPM; Min HR: 42BPM. S upraventricular Tachycardia was documented with a maximum heart r ate of 152BPM (Strip 1, page 5) and duration of 3.8 seconds (Strip 3 , page 5). V entricular ectopy was documented in the form of isolated beats. A trial ectopy was documented in the form of triplets, couplets, and i solated beats. //TLH December 22, 2019 I mproved since she has stopped taking stimulants such as caffeine. Cintia Ortega MD Cardiology Follow up : H er updated medication list for this problem includes: Pravastatin 40mg Tablets (Pravastatin sodium) ..... Take 1 tablet by mouth once daily Cintia Ortega MD Cardiology Follow up : B P today: 106/80 P rior BP: 131/85 (12/22/2019) Her updated medication list for this problem includes: Metoprolol Succinate Er 25 Mg Oral Tablet Extended Release 24 Hour (Metoprolol succinate) ..... One tab. daily Hydrochlorothiazide 25 Mg Oral Tablet (Hydrochlorothiazide) ..... One tab daily Aspir-81 81 Mg Oral Tablet Delayed Release (Aspirin) ..... Once daily Cintia Ortega MD Cardiology Follow up : 2 018 cath IMPRESSION: 1 . Minimal CAD 2 . Normal LV fxn 3 . Normal SBP and LVEDP Cintia Ortega MD Cardiology Follow up : d enies fatigue, daytime somnolence. patiejnt doing ok so i do not think she needs a cpap at this time and she agrees. Currently not on sleep apnea machine. Cintia Ortega MD Cardiology Follow up :Needs to see ENT. Was placed on meclizine. Was in the ER, BP was OK. Head CT was negative. D/C HCTZ and potassium. Cintia Ortega MD Cardiology follow up :A1C 6.0 fo llows with PCP Cintia Ortega MD Cardiology follow up : d enies fatigue, daytime somnolence. patiejnt doing ok so i do not think she needs a cpap at this time and she agrees. Currently not on sleep apnea machine. Cintia Ortega MD Cardiology follow up : S till gets palpitations. Stopped all caffeine intake. ZIO 11/2017 R hythm: Sinus Rhythm with four Supraventricular Tachycardia events, r are Ventricular ectopics, and rare Supraventricular ectopics. A vg HR: 67BPM; Max sinus HR: 129BPM; Min HR: 42BPM. S upraventricular Tachycardia was documented with a maximum heart r ate of 152BPM (Strip 1, page 5) and duration of 3.8 seconds (Strip 3 , page 5). V entricular ectopy was documented in the form of isolated beats. A trial ectopy was documented in the form of triplets, couplets, and i solated beats. //H December 22, 2019 I mproved since she has stopped taking stimulants such as caffeine. Cintia Ortega MD Cardiology follow up :CHOL: 156 (02/05/2017) HDL: 72 (02/05/2017) H er updated medication list for this problem includes: Pravachol 40 Mg Oral Tablet (Pravastatin sodium) ..... Once daily Cintia Ortega MD Cardiology follow up : B P today: 131/85 P rior BP: 139/89 (07/05/2019) Labs Reviewed: C reat: 1.16 (02/05/2017) C hol: 156 (02/05/2017) HDL: 72 (02/05/2017) Her updated medication list for this problem includes: Metoprolol Succinate Er 25 Mg Oral Tablet Extended Release 24 Hour (Metoprolol succinate) ..... One tab. daily Hydrochlorothiazide 25 Mg Oral Tablet (Hydrochlorothiazide) ..... One tab daily Aspir-81 81 Mg Oral Tablet Delayed Release (Aspirin) ..... Once daily Cintia Ortega MD Cardiology follow up :1. Normal left ventricular systolic function. Normal left ventricular size. Normal left ventricular wall thickness. There is E to A w ave reversal consistent with impaired LV relaxation. E/E': 8.0. Left ventricular ejection fraction is measured at 60 %. 2 . Normal right ventricular size. Normal right ventricular systolic function. 3 . There is mild tricuspid regurgitation. IVC is normal in size with normal respiratory response. The RA pressure is estimated a t 3.0 mmHg. Estimated peak pulmonary artery systolic pressure is 23.0 mmHg. 4 . There is trace physiologic pulmonic valve regurgitation. E lectronically Signed By: Robin Ortega MD, [facility] 2 020-06-05 18:06:42 CDT December 22, 2019 N o new SOB. Cintia Ortega MD Cardiology:1. Normal arterial flow of the lower extremities bilaterally. 2 . Normal triphasic waveforms throughout the lower extremities bilaterally. Cintia Ortega MD Cardiology: H er updated medication list for this problem includes: Metoprolol Succinate Er 25 Mg Oral Tablet Extended Release 24 Hour (Metoprolol succinate) ..... One tab. daily Hydrochlorothiazide 25 Mg Oral Tablet (Hydrochlorothiazide) ..... One tab daily Aspir-81 81 Mg Oral Tablet Delayed Release (Aspirin) ..... Once daily Cintia Ortega MD Cardiology: d enies fatigue, daytime somnolence. patiejnt doing ok so i do not think she needs a cpap at this time and she agrees. Currently not on sleep apnea machine. Cintia Ortega MD Cardiology: Arlene aranda Conclusions 01/2017: 1 . Normal left ventricular systolic function. Normal left ventricular size. Normal left ventricular wall t hickness. Normal left ventricular diastolic function. Left ventricular ejection fraction is estimated at 6 0 %. 2 . Normal right ventricular size. Normal right ventricular systolic function. 3 . There is non-specific thickening of the tricuspid valve. There is moderate tricuspid regurgitation. I VC is normal in size with normal respiratory response. The RA pressure is estimated at 3.0 mmHg. E stimated peak pulmonary artery systolic pressure is 21. Cath 02/2017: I MPRESSION: 1 . Minimal CAD 2 . Normal LV fxn 3 . Normal SBP and LVEDP RECOMMENDATIONS: 1 . Medical managment with false positive stress test. Cintia Ortega MD Cardiology:2018 cath IMPRESSION: 1 . Minimal CAD 2 . Normal LV fxn 3 . Normal SBP and LVEDP Cintia Ortega MD Cardiology: S till gets palpitations. Stopped all caffeine intake. ZIO 11/2017 R hythm: Sinus Rhythm with four Supraventricular Tachycardia events, r are Ventricular ectopics, and rare Supraventricular ectopics. A vg HR: 67BPM; Max sinus HR: 129BPM; Min HR: 42BPM. S upraventricular Tachycardia was documented with a maximum heart r ate of 152BPM (Strip 1, page 5) and duration of 3.8 seconds (Strip 3 , page 5). V entricular ectopy was documented in the form of isolated beats. A trial ectopy was documented in the form of triplets, couplets, and i solated beats. //[facility] Cintia Ortega MD Cardiology follow up : B P today: 130/70 P rior BP: 126/80 (10/15/2017) The following medications were removed from the medication list: Lisinopril 20 Mg Oral Tablet (Lisinopril) ..... Bid Her updated medication list for this problem includes: Metoprolol Succinate Er 25 Mg Oral Tablet Extended Release 24 Hour (Metoprolol succinate) ..... One tab. daily Hydrochlorothiazide 25 Mg Oral Tablet (Hydrochlorothiazide) ..... One tab daily Aspir-81 81 Mg Oral Tablet Delayed Release (Aspirin) ..... Once daily Cintia Ortega MD Cardiology follow up : d enies fatigue, daytime somnolence. patiejnt doing ok so i do not think she needs a cpap at this time and she agrees Cintia Ortega MD Cardiology follow up : Arlene aranda Conclusions 01/2017: 1 . Normal left ventricular systolic function. Normal left ventricular size. Normal left ventricular wall t hickness. Normal left ventricular diastolic function. Left ventricular ejection fraction is estimated at 6 0 %. 2 . Normal right ventricular size. Normal right ventricular systolic function. 3 . There is non-specific thickening of the tricuspid valve. There is moderate tricuspid regurgitation. I VC is normal in size with normal respiratory response. The RA pressure is estimated at 3.0 mmHg. E stimated peak pulmonary artery systolic pressure is 21. Cath 02/2017: I MPRESSION: 1 . Minimal CAD 2 . Normal LV fxn 3 . Normal SBP and LVEDP RECOMMENDATIONS: 1 . Medical managment with false positive stress test. Cintia Ortega MD Cardiology follow up : S till gets palpitations. Stopped all caffeine intake. ZIO 11/2017 R hythm: Sinus Rhythm with four Supraventricular Tachycardia events, r are Ventricular ectopics, and rare Supraventricular ectopics. A vg HR: 67BPM; Max sinus HR: 129BPM; Min HR: 42BPM. S upraventricular Tachycardia was documented with a maximum heart r ate of 152BPM (Strip 1, page 5) and duration of 3.8 seconds (Strip 3 , page 5). V entricular ectopy was documented in the form of isolated beats. A trial ectopy was documented in the form of triplets, couplets, and i solated beats. //[facility] Cintia Ortega MD Cardiology follow up : B P today: 126/80 P rior BP: 108/68 (03/26/2017) Labs Reviewed: C reat: 1.16 (02/05/2017) C hol: 156 (02/05/2017) HDL: 72 (02/05/2017) Her updated medication list for this problem includes: Hydrochlorothiazide 25 Mg Oral Tablet (Hydrochlorothiazide) ..... One tab daily Aspir-81 81 Mg Oral Tablet Delayed Release (Aspirin) ..... Once daily Lisinopril 20 Mg Oral Tablet (Lisinopril) ..... Bid Cintia Ortega MD Cardiology follow up : H er updated medication list for this problem includes: Glimepiride 2 Mg Oral Tablet (Glimepiride) ..... Take one tablet daily Aspir-81 81 Mg Oral Tablet Delayed Release (Aspirin) ..... Once daily Lisinopril 20 Mg Oral Tablet (Lisinopril) ..... Bid Metformin Hcl 500 Mg Oral Tablet (Metformin hcl) ..... Twice daily Cintia Ortega MD Cardiology follow up:Followed by PCP. Cintia Ortega MD Cardiology follow up Cintia pagan MD Cardiology follow up :Stopped using her CPAP. She wants to do a repeat titration to see whether or not she needs it. She had a tough time with [facility] and became frustrated with them. Cintia Ortega MD Cardiology follow up :Still gets palpitations. Stopped all caffeine intake. Will obtain Holter. Cintia Ortega MD Cardiology hospital follow up: H er updated medication list for this problem includes: Hydrochlorothiazide 25 Mg Oral Tablet (Hydrochlorothiazide) ..... One tab daily Aspir-81 81 Mg Oral Tablet Delayed Release (Aspirin) ..... Once daily Lisinopril 20 Mg Oral Tablet (Lisinopril) ..... Bid Cintia Ortega MD Cardiology hospital follow up: E ncouraged to use CPAP. Cintia Ortega MD Cardiology hospital follow up:False positive stress test. Cintia Ortega MD Cardiology hospital follow up: C ontinues to avoid caffeinated products. Cintia Ortega MD Cardiology Follow up : C ontinues to avoid caffeinated products. Her updated medication list for this problem includes: Aspir-81 81 Mg Oral Tablet Delayed Release (Aspirin) ..... Once daily Lisinopril 20 Mg Oral Tablet (Lisinopril) ..... Bid Cintia Ortega MD Cardiology Follow up : H er updated medication list for this problem includes: Pravachol 40 Mg Oral Tablet (Pravastatin sodium) ..... Once daily Cintia Ortega MD Cardiology Follow up : H er updated medication list for this problem includes: Hydrochlorothiazide 25 Mg Oral Tablet (Hydrochlorothiazide) ..... One tab daily Aspir-81 81 Mg Oral Tablet Delayed Release (Aspirin) ..... Once daily Lisinopril 20 Mg Oral Tablet (Lisinopril) ..... Bid Cintia Ortega MD Cardiology Follow up :Needs to contact her CPAP distributor for new machine Cintia Ortega MD Cardiology Follow up :Wants to proceed with diasgnostic cath to evaluate abnormal stress test. Cintia Ortega MD Cardiology:Followed by Dr. Crawford. H er updated medication list for this problem includes: Pravachol 40 Mg Oral Tablet (Pravastatin sodium) ..... Once daily Cintia Ortega MD Cardiology:Encouraged to use CPA P. Cintia Ortega MD Cardiology: H er updated medication list for this problem includes: Hydrochlorothiazide 25 Mg Oral Tablet (Hydrochlorothiazide) ..... One tab daily Aspir-81 81 Mg Oral Tablet Delayed Release (Aspirin) ..... Once daily Lisinopril 20 Mg Oral Tablet (Lisinopril) ..... Bid Cintia Ortega MD Cardiology:Continues to avoid ca ffeinated products. Cintia Ortega MD Cardiology:Noncomplaint CPAP. Sa kushal Ortega MD Cardiology Follow up Cintia pagan MD Cardiology Follow up Cintia pagan MD Cardiology Follow up : H er updated medication list for this problem includes: Hydrochlorothiazide 25 Mg Tabs (Hydrochlorothiazide) ..... One tab daily Aspir-81 81 Mg Oral Tbec (Aspirin) ..... Once daily Lisinopril 20 Mg Tabs (Lisinopril) ..... Bid Cintia Ortega MD Cardiology Follow up Cintia pagan MD Cardiology Follow up :The patient has been using their CPAP device at least 4 hours at night, at least 5 days per week and has noticed sleep apnea symptoms improved, including improved energy, decreased daytime sleepiness, decreased awakenings, and improved sleep quality. Cintia Ortega MD Cardiology Follow up : H er updated medication list for this problem includes: Hydrochlorothiazide 25 Mg Tabs (Hydrochlorothiazide) ..... One tab daily Aspir-81 81 Mg Oral Tbec (Aspirin) ..... Once daily Lisinopril 20 Mg Tabs (Lisinopril) ..... Bid Cintia Ortega MD Cardiology Follow up Cintia pagan MD Cardiology Follow up Cintia pagan MD Cardiology Follow up :LIKELY RELATED TO CAFFEINE INTAKE AND NEEDS TO BE AVOIDING CAFFEINE NO PLANS TO START BB T ROSIE REVIEWED H er updated medication list for this problem includes: Aspir-81 81 Mg Oral Tbec (Aspirin) ..... Once daily Lisinopril 20 Mg Tabs (Lisinopril) ..... Bid Cintia Ortega MD Cardiology: H er updated medication list for this problem includes: Pravachol 40 Mg Oral Tabs (Pravastatin sodium) ..... Once daily Cintia Ortega MD Cardiology:resume hc tz 25mg once daily The following medications were removed from the medication list: Hydrochlorothiazide 12.5 Mg Caps (Hydrochlorothiazide) ..... One tab. daily & #13;Her updated medication list for this problem includes: Aspir-81 81 Mg Oral Tbec (Aspirin) ..... Once daily Lisinopril 20 Mg Tabs (Lisinopril) ..... Bid Cintia Ortega MD Cardiology:oncpap Cintia springer MD Cardiology:has cp wi th palpitations will get leonid stress nuclear to eval the cp and a tele monitor for the palp 'vibration in chest' Cintia Ortega MD Cardiology:uncontrol led, increase lisinopril to 20 mg twice daily H er updated medication list for this problem includes: Aspir-81 81 Mg Oral Tbec (Aspirin) ..... Once daily Hydrochlorothiazide 12.5 Mg Caps (Hydrochlorothiazide) ..... One tab. daily Lisinopril 20 Mg Tabs (Lisinopril) ..... Bid Cintia Ortega MD Cardiology:per Dr. Wayne silvestre H er updated medication list for this problem includes: Pravachol 40 Mg Oral Tabs (Pravastatin sodium) ..... Once daily Cintia Ortega MD Cardiology:improved on CPAP Coleen Ortega MD Cardiology:follows with Dr. Hardy on Cintia Ortega MD Cardiology:improved after s tart ing CPAP Cintia Ortega MD Cardiology:started on CPAP Ivana Ortega MD Cardiology Cintia Ortega MD Cardiology: H er updated medication list for this problem includes: Lisinopril 20 Mg Tabs (Lisinopril) ..... One tab. daily Amaryl 2 Mg Oral Tabs (Glimepiride) ..... Once daily Metformin Hcl 500 Mg Tabs (Metformin hcl) ..... Twice daily Cintia Ortega MD Cardiology:A treatme nt trial with CPAP at a pressure of 6.0 cm/H20 during sleep is suggested. The patient used a large size [employer] brand Ignacio FX Nasal Pillow style mask with a Heated Humidifier Cintia Ortega MD Cardiology:GET CPAP WITH A treatment trial with CPAP at a pressure of 6.0 cm/H20 during sleep is suggested. The patient used a large size [employer] brand Ignacio FX Nasal Pillow style mask with a Heated Humidifier O rders: 9 9215 HIGH Complex (CPT-78292) A rterial Duplex Bi-Lower EX (CPT-61671) Cintia Ortega MD Cardiology: O rders: 9 9215 HIGH Complex (CPT-00259) A rterial Duplex Bi-Lower EX (CPT-09105) Cintia Ortega MD Cardiology: H er updated medication list for this problem includes: Hydrochlorothiazide 12.5 Mg Caps (Hydrochlorothiazide) ..... One tab. daily Lisinopril 20 Mg Tabs (Lisinopril) ..... One tab. daily Cintia Ortega MD Cardiology: O rders: S NOMED-CT: [id number] Current Medications Documented ([facility]-[id number]) E KG (CPT-81502) Her updated medication list for this problem includes: Hydrochlorothiazide 12.5 Mg Caps (Hydrochlorothiazide) ..... One tab. daily Lisinopril 20 Mg Tabs (Lisinopril) ..... One tab. daily Cintia Ortega MD Cardiology:RESUME HCTZ Cintia Ortega MD Cardiology Cintia Ortega MD Cardiology Cintia Ortega MD Cardiology Cintia Ortega MD Cardiology: O rders: 9 9215 HIGH Complex (CPT-65962) S [facility] Study Home (*) Cintia Ortega MD Cardiology Cintia Ortega MD follow up: H er updated medication list for this problem includes: Hydrochlorothiazide 12.5 Mg Caps (Hydrochlorothiazide) ..... One tab. daily Lisinopril 20 Mg Tabs (Lisinopril) ..... One tab. daily Cintia Ortega MD hospital follow up: H er updated medication list for this problem includes: Hydrochlorothiazide 12.5 Mg Caps (Hydrochlorothiazide) ..... One tab. daily Lisinopril 20 Mg Tabs (Lisinopril) ..... One tab. daily Cintia Ortega MD Date Name Monitor - Telemetry (Mobile Cardiac) EKG LIPID PANEL COMPREHENSIVE METABO LIC PANEL, W/EGFR Complete Echo MAGNESIUM LIPID PANEL COMPREHENSIVE METABO LIC PANEL, W/EGFR Monitor - Telemetry (Mobile Cardiac) MAGNESIUM LIPID PANEL COMPREHENSIVE METABO LIC PANEL, W/EGFR LIPID PANEL MAGNESIUM COMPREHENSIVE METABO LIC PANEL, W/EGFR EKG Complete Echo Holter Monitor 48 hr Venous Doppler Bilat eral LE - Reflux Venous Doppler Bilat eral LE - Reflux Complete Echo PROBNP, N TERMINAL Thyroid Ultrasound Complete Echo RPM (remote patient monitoring) Complete Echo Monitor - Telemetry (Mobile Cardiac) Sleep Study Home Monitor - Telemetry (Mobile Cardiac) Carotid Duplex Bilat eral Complete Echo Sleep Study Holter Monitor 24 Hr LIPID PANEL BASIC METABOLIC PANE L W/EGFR CBC (INCLUDES DIFF/P LT) PROTHROMBIN TIME WIT H INR Cardiac Cath - Left - [facility] STR - Adenosine Carotid Duplex Bilat eral Complete Echo Mobile Cardiac Tele Complete Echo Arterial Duplex Bi-L ower EX BASIC METABOLIC PANE L W/EGFR BASIC METABOLIC PANE L W/EGFR Sleep Study Home Carotid Duplex Bilat eral Complete Echo STR - Adenosine HISTORY OF PROCEDURES Procedure Date Procedure Name Provider Procedure Notes S tatus Complex e/m visit add on Cintia Ortega MD completed EKG Cintia Ortega MD completed Complex e/m visit add on Cintia Ortega MD completed EKG Cintia Ortega MD completed EKG Cintia Ortega MD completed EKG Cintia Ortega MD completed EKG Cintia Ortega MD completed EKG Cintia Ortega MD completed EKG Cintia Ortega MD completed EKG Cintia Ortega MD completed Mobile Cardiac Telem etry - Tech Cintia Ortega MD completed Mobile Cardiac Telem etry - Prof Cintia Ortega MD completed EKG Cintia Ortega MD completed EKG Cintia Ortega MD completed Mobile Cardiac Telem etry - Tech iCntia Ortega MD completed Mobile Cardiac Telem etry - Prof Cintia Ortega MD completed EKG Cintia Ortega MD completed EKG Cintia Ortega MD completed EKG Cintia Ortega MD completed Protime Cintia Ortega MD completed EKG Cintia Ortega MD completed ZIO Holter Hookup Denilson Huerta MD c ompleted ZIO Holter Hookup Cintia springer MD completed EKG Cintia Ortega MD completed EKG Cintia Ortega MD completed SNOMED-CT: [id number] Current Medications Documented Cintia Ortega MD completed EKG Cintia Ortega MD completed SNOMED-CT: [id number] Current Medications Documented Cintia Ortega MD completed Stress EKG Norman Fields MD completed Regadenoson, 4 units Sanjaya N S aheta MD completed Cardiolite, 2 units Cintia mccoy MD completed SPECT Images Darrell Rendon MD complet ed EKG Cintia Ortega MD completed SNOMED-CT: [id number] Current Medications Documented Cintia Ortega MD completed EKG Cintia Ortega MD completed SNOMED-CT: [id number] [id number] Current Medications Documented Cintia Ortega MD completed EKG Cintia Ortega MD completed SNOMED-CT: [id number] 228530 Current Medications Documented Cintia Ortega MD completed Event Monitor Cintia Ortega MD completed EKG Cintia Ortega MD completed SNOMED-CT: [id number] Current Medications Documented Cintia Ortega MD completed SNOMED-CT: [id number] Physical Exam, Performed: Pulse Exam of Foot Cintia Ortega MD completed EKG Cintia Ortega MD completed SNOMED-CT: 117675640 388063 Current Medications Documented Cintia Ortega MD completed EKG Cintia Ortega MD completed SNOMED-CT: [id number] 390921 Current Medications Documented Cintia Ortega MD completed EKG Cintia Ortega MD completed SNOMED-CT: [id number] 121859 Current Medications Documented Cintia Ortega MD completed
--- OUTSIDE RECORDS SUMMARY | 2024-06-15 14:33 | XMS_ITS | Referral Summary ---
Author Organization [facility] Address [address] [place] [address] Care Team Providers Care Manager Administration Name Role Phone Manolo Crawford MD Unavailable [phone] Manolo Crawford MD Primary Care Provider Breanna Aviles MD Unavailable [phone] Zach Kelly MD Unavailable [phone] Ana Mariee MD PhD Unavailable Fina Blackwood CELLULAR TOWER CLIMBER Unavailable [phone] Encounters Date Type Department Care Team Description 03/30/2024 8:45 AM PRODUCTION WOOD CRAFTSMAN Lab [facility] - Lab Collection [address] [place] [id number] 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) 03/30/2024 9:00 AM PRODUCTION WOOD CRAFTSMAN Office Visit [facility] Oncology [address] [place] [phone] Fina Blackwood, GUTIERREZ 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 Tmax 101 at home; 38.8 on admit [...] with onc, no need for abx at [place] Drug rash 08/23/2022 Assessment & Plan (08/24/2022 [...] alternative -per onc, will resume acyclovir [place] Pancytopenia due to chemotherapy 08/23/2022 Assessment & [...] on R-JUSTINA. 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 Has had fever in the past after chemotherapy. - [facility] onc c/s, appreciate recs and assistance Assessment & Plan (08/24/2022 8:26 PM CDT): Recently diagnosed in setting of new liver mass and established with Dr. Radha Olivera -Received C1 of R-JUSTINA (rituximab, bendamustine, cytarabine), last received chemo D4 on 08/12 - [facility] Consult -OI ppx: Acv. Bactrim held [...] several months, mri in 10/07 with no SURVEY INSTRUMENT OPERATOR involvement - cont esgic prn Assessment & [...] Cr 1.22 - Avoid nephrotoxins, renal-dose meds Immunizations Immunization Administration Dates Next Due Influenza, Quadrivalent, Hig h Dose, Preservative Free, Intrr 12/27/2019 Influenza, Trivalent, High D ose, Split, Preservative Free, Intramuscular 01/04/2019 Pneumococcal Conjugate PCV 13 09/05/2018 Pneumococcal Polysaccharide PPV23 12/27/2019 Social History Tobacco Use Types Packs/Day Years [...] 11/29/2022 How often do you attend chur or rastafarian services? 1 to 4 times per year 11/29/2022 Do you belong to any clubs o r organizations such as lutheran groups, unions, fraternal or athletic groups, or [...] place to sleep or slept in a fdc (including now)? No 11/29/2022 Personal Safety Answer [...] on file Sexual Orientation Not on file Last Filed Vital Signs Vital Sign Reading Time Taken Comments Blood Pressure 147/75 03/30/2024 8:55 AM PRODUCTION WOOD CRAFTSMAN Pulse 72 03/30/2024 8:55 AM PRODUCTION WOOD CRAFTSMAN Temperature 36.4 C (97.6 F) 03/30/2024 8:55 AM PRODUCTION WOOD CRAFTSMAN Respiratory Rate 18 03/30/2024 8:55 AM PRODUCTION WOOD CRAFTSMAN Oxygen Saturation 98% 03/30/2024 8:55 AM PRODUCTION WOOD CRAFTSMAN Inhaled Oxygen Concentration - - Weight 78.1 kg (172 lb 3.2 oz) 03/30/2024 8:55 A M PRODUCTION WOOD CRAFTSMAN Height 161.2 cm (5' 3.47 ) 03/30/2024 8:55 AM CS T Body Mass Index 30.06 03/30/2024 8:55 AM PRODUCTION WOOD CRAFTSMAN Plan of Treatment Not on file Medical Devices Implanted Type Area Heel Burnisher Device Identifier Shelf Expiration Date Model / Serial / Lot Ethicon Endo Surgery Vicryl 6x6in Knit Woven Mesh Surgical Vkmm - [id number] Implanted:Qty : 1 on 06/08/2023 by Zach Kelly MD at [facility] Mesh Right: Kidney Ethicon Endo Surgery [id number] 05/15/2025 VKMM / / [id number] Procedures Procedure Name Priority Date/Time Associated Diagnosis Comments EGFR Routine 03/30/2024 8:46 AM PRODUCTION WOOD CRAFTSMAN 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) DIFFERENTIAL AUTO Routine 03/30/2024 8:4 6 AM PRODUCTION WOOD CRAFTSMAN 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 73 m2 Comment: [...] last reviewed 2020. Blood 03/30/2024 8:46 AM PRODUCTION WOOD CRAFTSMAN 03/30/2024 9:10 AM PRODUCTION WOOD CRAFTSMAN us Breanna Aviles MD LAB BLOOD ORDERABLES Final Re sult ANG GAY [facility] Department [place] [address] * (ABNORMAL) Differential, auto (03/30/2024 8:46 AM PRODUCTION WOOD CRAFTSMAN) Neutrophil abs 3.9 1.5 - 6.5 K/cumm Comment:Testing performed by : [facility], [address] [place] [phone] Lymphocyte abs 0.6(L) 0.8 - 3.3 K/cumm CERELSA [facility] Comment:Testing performed by : [facility], [address] [place] [phone] Monocyte abs 0.7 0.2 - 0.8 K/cumm ANG GAY Comment:Testing performed by : [facility], [address] [place] [phone] Eosinophil abs 0.3 0.0 - 0.5 K/cumm CERELSA BJ Comment:Testing performed by : [facility], [address] [place] [phone] Basophil abs 0.0 0.0 - 0.1 K/cumm CERELSA BJ Comment:Testing performed by : [facility], [address] [place] [phone] Neutrophil pct 70.9 % CERELSA GAY Comment: Interpretive Data Percent cell count reference ranges are not reported, since discordance with absolute values may lead to misinterpretation of CBC data. Current Interpretive Data was last revised on 2017. Testing performed by: [facility], [address] [place] [phone] Lymphocyte pct 10.6 % CERNER [facility] Comment: Interpretive Data Percent cell count reference ranges are not reported, since discordance with absolute values may lead to misinterpretation of CBC data. Current Interpretive Data was last revised on 2017. Testing performed by: [facility], [address] [place] [phone] Monocyte pct 12.0 % CERNER [facility] Comment: Interpretive Data Percent cell count reference ranges are not reported, since discordance with absolute values may lead to misinterpretation of CBC data. Current Interpretive Data was last revised on 2017. Testing performed by: [facility], [address] [place] [address] Eosinophil pct 6.0 % [facility] Comment: Interpretive Data Percent cell count reference ranges are not reported, since discordance with absolute values may lead to misinterpretation of CBC data. Current Interpretive Data was last revised on 2017. Testing performed by: [facility], [address] [place] [phone] Basophil pct 0.5 % [facility] Comment: Interpretive Data Percent cell count reference ranges are not reported, since discordance with absolute values may lead to misinterpretation of CBC data. Current Interpretive Data was last revised on 2017. Testing performed by: [facility], [address] [place] [phone] Blood 03/30/2024 8:46 AM PRODUCTION WOOD CRAFTSMAN 03/30/2024 9:06 AM PRODUCTION WOOD CRAFTSMAN us Breanna Aviles MD LAB BLOOD ORDERABLES Final Re sult [facility] Department [place] [address] * CBC with auto differential (03/30/2024 8:46 AM PRODUCTION WOOD CRAFTSMAN) WBC 5.5 3.8 - 9.9 K/cumm Comment:Testing performed by : [facility], [address] [place], [place] [phone] Hgb 12.5 11.9 - 15.5 g/dL CERNER BJ Comment:Testing performed by : [facility], [address] [place], [place] [phone] Hct 38.3 35.6 - 45.5 % CERNER BJ Comment:Testing performed by : [facility], [address] [place], [place] [phone] Plt 190 150 - 400 K/cumm CERNER BJ Comment:Testing performed by : [facility], [address] [place], [place] [phone] MPV 7.4 6.8 - 10.4 fL CERNER BJ Comment:Testing performed by : [facility], [address] [place], [place] [phone] RBC 4.08 3.90 - 5.20 M/cumm CERNER BJ Comment:Testing performed by : [facility], [address] [place] [address] MCV 94.0 81.3 - 96.4 fL CERNER BJ Comment:Testing performed by : [facility], [address] [place], [place] [phone] MCH 30.6 27.1 - 33.3 pg CERNER BJ Comment:Testing performed by : [facility], [address] [place] [address] MCHC 32.5 32.3 - 35.7 g/dL CERNER BJ Comment:Testing performed by : [facility], [address] [place] [address] RDW CV 14.8 11.1 - 14.9 % CERNER BJ Comment:Testing performed by : [facility], [address] [place] [address] NRBC abs 0.00 0.00 - 0.01 K/cumm CERNER BJ Comment:Testing performed by : [facility], [facility] [place] [address] Blood 03/30/2024 8:46 AM PRODUCTION WOOD CRAFTSMAN 03/30/2024 9:06 AM PRODUCTION WOOD CRAFTSMAN Breanna Aviles MD LAB BLOOD ORDERABLES Final Re sult Performing Organization Address [facility]/ZIP Co de Phone Number [facility] Department [place] [address] * Lactate dehydrogenase (LD) (03/30/2024 8:46 AM PRODUCTION WOOD CRAFTSMAN) Lactate dehydrogenase (LDH) 189 100 - 250 Units/L Blood 03/30/2024 8:46 AM PRODUCTION WOOD CRAFTSMAN 03/30/2024 9:10 AM PRODUCTION WOOD CRAFTSMAN Breanna Aviles MD LAB BLOOD ORDERABLES Final Re sult Performing Organization Address [facility] Co de Phone Number [facility] Department [place] [address] * (ABNORMAL) Comprehensive metabolic panel (03/30/2024 8:46 AM PRODUCTION WOOD CRAFTSMAN) Pathologist [facility] Sodium 142 135 - 145 mmol/L Potassium, pl 4.8 3.3 - 4.9 mmol/L [facility] Chloride 106 97 - 110 mmol/L [facility] CO2 29 22 - 32 mmol/L [facility] Anion gap 7 2 - 15 mmol/L [facility] BUN 23 6 - 25 mg/dL [facility] Creatinine 1.21(H) 0.60 - 1.10 mg/dL [facility] Glucose 90 70 - 199 mg/dL [facility] Comment: Interpretive Data Fasting glucose >/= 126 [...] classification and Diagnosis of Diabetes Diabetes Care 202; 46: S19-S40. Current interpretive data was last revised 2022. Calcium 9.9 8.5 - 10.3 mg/dL [facility] Bilirubin, total 0.5 0.1 - 1.2 mg/dL [facility] Protein, pl 8.0 6.5 - 8.5 g/dL [facility] Albumin 4.4 3.5 - 5.0 g/dL [facility] Alk phos 88 40 - 130 Units/L [facility] ALT 18 7 - 45 Units/L [facility] AST 28 10 - 45 Units/L [facility] Blood 03/30/2024 8:46 AM PRODUCTION WOOD CRAFTSMAN 03/30/2024 9:10 AM PRODUCTION WOOD CRAFTSMAN us Breanna Aviles MD LAB BLOOD ORDERABLES Final Re sult Performing Organization Address City/[facility]/ZIP Co de Phone Number [facility] [place] [address] * (ABNORMAL) Hemoglobin A1c (05/25/2023 1:57 PM CDT) Hgb A1C 5.9(H) 4.0 - 5.6 % Estimated Average Glucose 123 mg/dL [facility] Comment: The ADA recommends reporting an estimated [...] NP LAB BLOOD ORDERABLES Fi nal Result Performing Organization Address City/[facility]/ZIP Co de Phone Number [facility] [place] [address] * Lipid panel (08/24/2022 4:39 AM CDT) Cholesterol 129 30 - 199 mg/dL ANG [facility] Comment: Interpretive Data Ages < or [...] revised on 2017. Triglycerides 116 <=149 mg/dL [facility] Comment: Interpretive Data Ages < or [...] on 2017. HDL 41 >=40 mg/dL ANG [facility] Comment: Interpretive Data Ages < or [...] on 2017. LDL, calculated 65 <=129 mg/dL ANG [facility] Comment: Interpretive Data Ages < or [...] revised on 2017. Non-HDL Cholesterol 88 mg/dL [facility] Comment: Interpretive Data Ages < or = [...] last revised on 2017. Chol/HDL ratio 3 [facility] Blood 08/24/2022 4:39 AM CDT 08/24/2022 4:57 AM CDT us Omar Soria MD LAB BLOOD ORDERABLES Sybil l Result [facility] Department [place] [address] * Hepatitis C antibody (07/21/2022 8:47 AM CDT) Hep C Ab Nonreactive Nonreactive [facility] Comment:Antibodies to HCV no t detected. Does NOT exclude the possibility of recent exposure to HCV. Current interpretive data was last revised on 21 Blood 07/21/2022 8:47 AM CDT 07/21/2022 9:00 AM CDT us Breanna Aviles MD LAB MICROBIOLOGY - GENERAL OR DERABLES Final Result [facility] Department [place] [address] from Last 3 Months or Most Recently Relevant to Health Maintenance Insurance [facility] MEDICARE ADVANTAGE [facility] MEDICARE ADVANTAGE Advance Directives For more information, please contact: [phone] * Full Code (Latest Code Status on [...] 2:23 PM 07/08/2022 8:45 PM Care Teams Manager Administration Relationship Specialty Start Date End Date Manolo Crawford MD [address] [facility] [address] [place] [address] PCP - General Internal Medicine 06/17/22 Manolo Crawford MD [address] [facility] [address] [address] Referring Physician Internal Medicine 06/16/22 Breanna Aviles MD [address] [facility] [address] [place] [address] Medical Oncologist/Staffing Associate Medical Oncology 10/09/22 Zach Kelly MD [address] [facility] [place] [address] Consulting Physician Urology 06/11/23 Ana Mariee MD PhD [address] [facility] [address] DIV [place] [address] Consulting Physician Medical Oncology 08/17/23 Fina Blackwood NP [address] [place] [address] Nurse Practitioner Medical Oncology 08/17/23
--- OUTSIDE RECORDS SUMMARY | 2024-06-15 14:33 | XMS_ITS | Continuity of Care Document ---
Author Organization [facility] Address [address] [place] [address] [address] [place] [address] Phone Care Team Providers Care Wine Steward/Stewardess Name Role Phone Hyde OD, Joce Unavailable Unavailable Advance Directives Directive Yes / No Effective Date File Name No Information Encounters Encounter Description Practice Location Reason(s) For Visit Diagnoses Date Provider Providers Copied on Encounter [facility], [address] [place] [address] [address], [place], [place], [id number], [place] tel:[phone] [facility] [place] No Information Dec-1 3-200 6 Hyde OD Joce. [address] [facility] [place] , [address], [place], [address], [place]. tel:[phone] Family History Family Member Type Diagnosis Age At Onset No Information Payers Payer name Insurance type Covered green party ID Authoriza deidre(s) [facility] BL [id number] Social History Type Description Quantity Date Captured [...]
== END 2024-06-15 13:41 | disposition home or self-care (01) ==
PROVIDERS: PCP Internal Medicine; Visit Provider Internal Medicine
DX: J61 Pneumoconiosis due to asbestos and other mineral fibers (principal)
CPT/HCPCS: 71250

== ENCOUNTER 2024-09-27 14:16 | Outpatient (CLI) | payer MEDICARE, SELFPAY ==
--- NOTE | ~2024-09-27 | DEXA_ITS ---
Bone Density Report Name: JEANCARLOS LONDONO Age: 69 Sex: Female Ethnicity: Black Date of : 1955 Indication: postmenopausal; screening for osteoporosis; height loss; prior fracture; cancer; Referring Provider: JACKIE BURKS Study: Bone densitometry was performed. Exam Date: September 27, 2024 Accession number: [id number] Bone Density: Region BMD T-score Z-score Classification AP Spine(L1-L4) 1.388 3.1 4.6 Normal World Health Organization criteria for BMD impression classify patients as: Normal (T-score at or above -1.0), Osteopenia (T-score between -1.0 and -2.5), or Osteoporosis (T-score at or below -2.5). Clinical Information Provided by Patient: Have had a previous hip or vertebral fracture Has had a low trauma fracture Has used the following medications: Calcium Has the following medical conditions: Cancer Patient maximum height was 66 Menopause Age: 53 Does not regularly consume dairy products Onset of menses at age 10 Number of children 3 Impression: The patient has normal bone mass. The patient has risk factors, including: previous fracture. Discussion: INCREASED RISK OF FRACTURE DUE TO HISTORY OF FRACTURE. The patient's previous fracture puts the patient at high risk of a future fracture. In untreated patients, the risk of osteoporotic fracture increases approximately two-fold for each 1.0 SD decrease in T-score. Low bone density is not the only risk factor for fracture; also consider factors such as patient's age, frailty or poor health, risk of falling, risk of injury, previous osteoporotic fracture, family history of osteoporosis, cigarette smoking, low body weight, etc. Not everyone with a low trauma fracture has osteoporosis; osteomalacia and other metabolic bone disorders should also be considered. Patients who have osteoporosis should be evaluated for specific diseases and conditions (secondary causes) that may cause or contribute to bone loss and fracture risk. National Osteoporosis Foundation (NOF) recommends pharmacologic intervention for patients with a prior hip or vertebral fracture regardless of BMD T-score. The patient should follow a healthful lifestyle (good nutrition with adequate calcium and vitamin D, and appropriate weight-bearing exercise). Follow-Up: Consider a repeat BMD and Vertebral Fracture Assessment (VFA) exam in 2 years or sooner if medically necessary, to reassess this patient's status. Reported by: CHRISTAL on 09/27/2024 2:49:00 PM. Reviewed, dictated and finalized at location A.
--- OUTSIDE RECORDS SUMMARY | 2024-09-27 14:18 | XMS_ITS ---
Author Organization [facility] Address [facility] [place] [address] Care Team Providers Care It Help Desk Associate Name Role Phone Manolo Crawford MD Unavailable [phone] Manolo Crawford MD Primary Care Provider Breanna Aviles MD Unavailable [phone] Zach Kelly MD Unavailable [phone] Ana Mariee MD PhD Unavailable [phone] Fina Blackwood APPLIQUER ZIGZAG Unavailable [phone] Active Problems Problem Noted Date Diagnosed Date Peripheral vascular disease, unspecified 024 Renal cell cancer, right 06/18/2023 Right renal mass 04/21/2023 Renal mass 04/18/2023 Chemotherapy induced neutropenia 04/14/2023 Syncope and collapse 11/29/2022 Assessment & Plan (11/30/2022 3:29 PM CDT): Reported episode of syncope on 11/27. Not preceded by chest pain/palpitations, and no headache or dizziness I woke up on the ground. short episode of asymptomatic SVT on tele (6 beats) otherwise NSR. Fever and post chemo probably to blame. 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 Tmax 101 at home; 38.8 on admit [...] on R-JUSTINA. 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 Has had fever in the past after chemotherapy. - [facility] onc c/s, appreciate recs and assistance Assessment & Plan (08/24/2022 8:26 PM CDT): Recently diagnosed in setting of new liver mass and established with Dr. Radha Olivera -Received C1 of R-JUSTINA (rituximab, bendamustine, cytarabine), last received chemo D4 on 08/12 - [place] Onc Consult -OI ppx: Acv. Bactrim held [...] several months, mri in 10/07 with no SUPERVISOR LIQUID YEAST involvement - cont esgic prn Assessment & [...]
--- OUTSIDE RECORDS SUMMARY | 2024-09-27 14:18 | XMS_ITS | Clinical Summary ---
Author Organization [facility] Address [facility] [place] [address] Care Team Providers Care [employer] Teacher Name Role Phone Manolo Crawford MD Unavailable [phone] Manolo Crawford MD Primary Care Provider Breanna Aviles MD Unavailable [phone] Zach Kelly MD Unavailable [phone] Ana Mariee MD PhD Unavailable Fina Blackwood NP Unavailable [phone] Allergies Active Allergy Reactions Criticality Noted Date [...] rals-lutein tablet Take 1 tablet by mouth early childhood lead teacher before breakfast Active OneTouch Delica Plus Lancet 30 gauge misc USE TO TEST BLOOD SUGAR TWICE DAILY 3 Active diphenhydrAMINE (BENADRYL) 25 mg capsule Take 1 tablet/capsule (25 mg total) by mouth every 4 (four) hours as needed for itching or allergies 40 capsule 3 Active Additional Information Patient not taking.Informant: Self, Reported on 06/29/2024 OneTouch Delica Plus Lanc Dev kit USE TO TEST BLOOD SUGARS TWICE DAILY 3 Active OneTouch Ultra2 Meter misc TEST BLOOD SUGARS DAILY 3 Active metoprolol XL (TOPROL-XL) 50 mg extended release tablet Take 1 tablet (50 mg total) by mouth daily 30 tablet 3 Active triamcinolone (KENALOG) 0.1 % cream Apply topically 2 (two) times a day To rash 453.6 g 3 Active Additional Information Patient not taking.Informant: Self, Reported on 06/29/2024 magnesium oxide (MAG-OX) 400 mg (241.3 mg elemental magnesium) tabletIndications :hypomagnesemia Take 1 tablet (400 mg total) by mouth 2 (two) times a day Active oxyCODONE (ROXICODONE) 5 mg immediate release tabletIndications :Pain Take 1 tablet (5 mg total) by mouth every 4 (four) hours as needed for pain 10 tablet 4 Active Additional Information Patient not taking.Reported on 06/29/2024 acetaminophen 500 mg capsuleIndication s:Pain Take 2 capsules (1,000 mg total) by mouth every 6 (six) hours 30 tablet 4 Active Additional Information Patient not taking.Reported on 06/29/2024 ibuprofen (ADVIL,MOTRIN) 600 mg tablet Take 1 tablet (600 mg total) by mouth every 6 (six) hours as needed for pain 20 tablet 4 Active Additional Information Patient not taking.Reported on 06/29/2024 acyclovir (ZOVIRAX) 400 mg tabletIndications :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),Persons encountering health services in other specified circumstances TAKE 1 TABLET BY MOUTH TWICE DAILY FOR SHINGLES PREVENTION 60 tablet 11 4 Active Additional Information Patient not taking.Reported on 06/29/2024 fluticasone propionate (FLONASE) 50 mcg/actuation nasal sprayIndications: [...] 3 (three) times a day 5 Active hydrOXYzine (ATARAX) 25 mg tabletIndications :Pruritus of Skin Take 1 tablet (25 mg total) by mouth 3 (three) times a day as needed for itching 20 tablet 3 5 Active docusate sodium (COLACE) 100 mg capsuleIndication s:constipation Take 1 capsule (100 mg total) by mouth 2 (two) times a day For constipation. 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 Tmax 101 at home; 38.8 on admit [...] on R-JUSTINA. Most recent chemo 3 days DIRECTOR OF SALES SU[employer]. Has had fever in the past after chemotherapy. - med onc c/s, appreciate recs and assistance Assessment & Plan (08/24/2022 8:26 PM CDT): Recently diagnosed in setting of new liver mass and established with Dr. Radha Olivera -Received C1 of R-JUSTINA (rituximab, bendamustine, cytarabine), last received chemo D4 on 08/12 - [facility]olo Onc Consult -OI ppx: Acv. 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 Three times a week 11/30/19 How often do you get togethe r with friends or relatives? Three times a week 11/29/2022 How often do you attend chur or judaism services? 1 to 4 times per year [...] place to sleep or slept in a jail (including now)? No 11/29/2022 Personal Safety Answer [...] Sign Reading Time Taken Comments Blood Pressure 126/78 06/29/2024 9:13 AM CDT Pulse 73 06/29/2024 9:13 AM CDT Temperature 37.1 C (98.8 F) 06/29/2024 9:13 AM CDT Respiratory Rate 16 06/29/2024 9:13 AM CDT Oxygen Saturation 99% 06/29/2024 9:13 AM CDT Inhaled Oxygen Concentration - - Weight 78.4 kg (172 lb 12.8 oz) 06/29/2024 9:13 AM CDT Height 161.2 cm (5' 3.47) 03/30/2024 8:55 AM CS T Body Mass Index 30.16 03/30/2024 8:55 AM LICENSED SURVEYOR Plan of Treatment Health Maintenance Due Date Last Done Comments Albumin Creatinine Ratio, Urine 1955 Breast Cancer Screening-Mammogram 1955 Colon Cancer Screening-Colonoscopy 1955 Osteoporosis Screening-Bone Density Scan 1955 Dilated Eye Exam 1955 Foot Exam 1955 DTaP/Tdap/Td Vaccine (1 - Tdap) 1964 Zoster Vaccine (1 of 2) 1972 Well Visit 65+ 2018 Lipid Panel 08/25/2023 08/24/2022 Depression Screening 10/06/2023 10/05/2022 Covid-19 Vaccine (2023-2 5 season) 2023 03/13/2022, 12/18/2020, 05/06/2020, Additional history exists Hemoglobin A1C 11/24/2023 05/25/2023, 11/15, 08/23/2022, Additional history exists Fall Risk Assessment 06/10/2024 06/11/2023 Influenza Vaccine (#1) 2024 12/27/2019, 2018 eGFR 06/29/2025 06/29/2024, 03/18, 01/06/2024, Additional history exists Pneumococcal vaccine 65+ Completed 12/27/2019, 08/16 Hepatitis B Screening Completed 07/21/2022 Hepatitis C Screening Completed 07/21/2022 Medical Devices Implanted Type Area Manager Administration Device Identifier Shelf Expiration Date Model / Serial / Lot [employer] Vicryl 6x6in Knit Woven Mesh Surgical mm - [id number] Implanted:Qty : 1 on 06/08/2023 by Zach Kelly MD at [facility] Mesh Right: Kidney [employer] [id number] 05/15/2025 [id number] / / [id number] Procedures Procedure Name Priority Date/Time Associated Diagnosis Comments EGFR Routine 06/29/2024 8:40 AM CDT 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 73 m2 Comment: Interpretive Data [...] interpretive data was last reviewed 2020. Blood 06/29/2024 8:40 AM CDT 06/29/2024 8:48 AM CDT Fina Blackwood LITHOGRAPHY CONTACT WORKER LAB BLOOD ORDERABLES Final Result [facility] Department of Laboratories [place] [id number] * (ABNORMAL) Differential, auto (06/29/2024 8:40 AM CDT) Neutrophil abs 3.81 1.50 - 6.50 K/cumm Comment:Testing performed by : [facility], [address] [place], [place] [phone] Lymphocyte abs 0.48(L) 0.80 - 3.30 K/cumm [facility] Comment:Testing performed by : [facility], [address] [place] [address] Monocyte abs 0.38 0.20 - 0.80 K/cumm [facility] Comment:Testing performed by : [facility], [address] [place] [address] Eosinophil abs 0.16 0.00 - 0.50 K/cumm [facility] Comment:Testing performed by : [facility], [address] [place] [address] Basophil abs 0.06 0.00 - 0.10 K/cumm [facility] Comment:Testing performed by : [facility], [address], [place] [address] Neutrophil pct 77.8 % C[facility]ER [facility] Comment: Interpretive Data Percent cell count reference ranges are not reported, since discordance with absolute values may lead to misinterpretation of CBC data. Current Interpretive Data was last revised on 2017. Testing performed by: [facility], [address] [place] [phone] Lymphocyte pct 9.9 % [facility] Comment: Interpretive Data Percent cell count reference ranges are not reported, since discordance with absolute values may lead to misinterpretation of CBC data. Current Interpretive Data was last revised on 2017. Testing performed by: [facility], [address] [place] [phone] Monocyte pct 7.8 % [facility] Comment: Interpretive Data Percent cell count reference ranges are not reported, since discordance with absolute values may lead to misinterpretation of CBC data. Current Interpretive Data was last revised on 2017. Testing performed by: [facility], [address] [place] [phone] Eosinophil pct 3.3 % [facility] Comment: Interpretive Data Percent cell count reference ranges are not reported, since discordance with absolute values may lead to misinterpretation of CBC data. Current Interpretive Data was last revised on 2017. Testing performed by: [facility], [address] [place] [phone] Basophil pct 1.2 % [facility] Comment: Interpretive Data Percent cell count reference ranges are not reported, since discordance with absolute values may lead to misinterpretation of CBC data. Current Interpretive Data was last revised on 2017. Testing performed by: [facility], [address] [place] [phone] Blood 06/29/2024 8:40 AM CDT 06/29/2024 8:45 AM CDT us Fina Blackwood LITHOGRAPHY CONTACT WORKER LAB BLOOD ORDERABLES Final Result [facility] Department of Laboratories [place] [phone] * (ABNORMAL) CBC with auto differential (06/29/2024 8:40 AM CDT) WBC 4.89 3.80 - 9.90 K/cumm Comment:Testing performed by : [facility], [address] [place] [address] Hgb 12.6 11.9 - 15.5 g/dL [facility] Comment:Testing performed by : [facility], [address] [place] [address] Hct 37.7 35.6 - 45.5 % [facility]J Comment:Testing performed by : [facility], [address] [place] [address] Plt 183 150 - 400 K/cumm [facility] Comment:Testing performed by : [facility], [address] [place] [address] MPV 7.4 6.8 - 10.4 fL [facility] Comment:Testing performed by : [facility], [address] [place] [address] RBC 4.06 3.90 - 5.20 M/cumm [facility] Comment:Testing performed by : [facility], [address] [place] [address] MCV 92.8 81.3 - 96.4 fL [facility] Comment:Testing performed by : [facility], [address] [place] [address] MCH 31.0 27.1 - 33.3 pg [facility] BJ Comment:Testing performed by : [facility], [address] [place] [address] MCHC 33.4 32.3 - 35.7 g/dL [facility] Comment:Testing performed by : [facility], [address] [place] [address] RDW CV 15.6(H) 11.1 - 14.9 % [facility] Comment:Testing performed by : [facility], [address] [place] [phone] NRBC abs 0.00 0.00 - 0.01 K/cumm [facility] Comment:Testing performed by : [facility], [address] [place] [phone] Blood 06/29/2024 8:40 AM CDT 06/29/2024 8:45 AM CDT Fina Blackwood NP LAB BLOOD ORDERABLES Final Result Performing Organization Address City/[facility]/ZIP Co de Phone Number [facility] Department [place] [address] * Lactate dehydrogenase (LD) (06/29/2024 8:40 AM CDT) Pathologist [facility] Lactate dehydrogenase (LDH) 171 100 - 250 Units/L Blood 06/29/2024 8:40 AM CDT 06/29/2024 8:48 AM CDT Fina Blackwood NP LAB BLOOD ORDERABLES Final Result Performing Organization Address [facility] Co de Phone Number [facility] [place] [address] * (ABNORMAL) Comprehensive metabolic panel (06/29/2024 8:40 AM CDT) Sodium 142 135 - 145 mmol/L Potassium, pl 4.8 3.3 - 4.9 mmol/L [facility] Chloride 107 97 - 110 mmol/L [facility] CO2 26 22 - 32 mmol/L [facility] Anion gap 9 2 - 15 mmol/L [facility] BUN 22 6 - 25 mg/dL [facility] Creatinine 1.33(H) 0.60 - 1.10 mg/dL [facility] Glucose 107 70 - 199 mg/dL [facility] Comment: Interpretive Data Fasting glucose >/= 126 [...] interpretive data was last revised 2022. Calcium 10.1 8.5 - 10.3 mg/dL [facility] Bilirubin, total 0.5 0.1 - 1.2 mg/dL [facility] Protein, pl 7.9 6.5 - 8.5 g/dL [facility] Albumin 4.5 3.5 - 5.0 g/dL [facility] Alk phos 94 40 - 130 Units/L [facility] ALT 18 7 - 45 Units/L [facility] AST 25 10 - 45 Units/L [facility] Blood 06/29/2024 8:40 AM CDT 06/29/2024 8:48 AM CDT us Fina Blackwood NP LAB BLOOD ORDERABLES Final Result Performing Organization Address City/[facility]/ZIP Co de Phone Number [facility] [place] [address] * (ABNORMAL) Hemoglobin A1c (05/25/2023 1:57 PM CDT) Hgb A1C 5.9(H) 4.0 - 5.6 % Estimated Average Glucose 123 mg/dL [facility] Comment: The ADA recommends reporting an estimated Average Glucose (eAG) with all Hemoglobin A1c results using the equation derived from a study of 507 normal and diabetic adults. Minority populations were underrepresented and children were not included. (Diabetes Care 2020; 43(S1): S66-S76). The eAG is not equivalent to a fasting glucose. Blood 05/25/2023 1:57 PM CDT 05/25/2023 2:27 PM CDT us Mile Sanchez LITHOGRAPHY CONTACT WORKER LAB BLOOD ORDERABLES Fi nal Result [facility] [place] [address] * Lipid panel (08/24/2022 4:39 AM CDT) Cholesterol 129 30 - 199 mg/dL [facility] Comment: Interpretive Data Ages < or = [...] on 2017. Triglycerides 116 <=149 mg/dL [facility] Comment: Interpretive Data Ages < or = [...] on 2017. HDL 41 >=40 mg/dL [facility] Comment: Interpretive Data Ages < or = [...] on 2017. LDL, calculated 65 <=129 mg/dL [facility] Comment: Interpretive Data Ages < or = [...] revised on 2017. Non-HDL Cholesterol 88 mg/dL [facility] Comment: Interpretive Data Ages < or = [...] last revised on 2017. Chol/HDL ratio 3 [facility] Blood 08/24/2022 4:39 AM CDT 08/24/2022 4:57 AM CDT Omar Soria MD LAB BLOOD ORDERABLES Sybil l Result [facility] [place] [address] * Hepatitis C antibody (07/21/2022 8:47 AM CDT) Hep C Ab Nonreactive Nonreactive [facility] Comment:Antibodies to HCV no t detected. Does NOT exclude the possibility of recent exposure to HCV. Current interpretive data was last revised on 21 Blood 07/21/2022 8:47 AM CDT 07/21/2022 9:00 AM CDT Breanna Aviles MD LAB MICROBIOLOGY - GENERAL OR DERABLES Final Result [facility] Nat[facility] [place] [address] from Last 3 Months or Most Recently Relevant to Health Maintenance Insurance [facility] MEDICARE ADVANTAGE [facility] MEDICARE ADVANTAGE Advance Directives For more information, please contact: [phone] * Full Code (Latest Code Status on [...] 2:23 PM 07/08/2022 8:45 PM Care Teams [employer] Teacher Relationship Specialty Start Date End Date Manolo Crawford MD [address] [address] PCP - General Internal Medicine 06/17/22 Manolo Crawford MD [address] [address] Referring Physician Internal Medicine 06/16/22 Breanna Aviles MD [address] [place] [id number] Medical Oncologist/Automatic Machines Supervisor Medical Oncology 10/09/22 Zach Kelly MD [address] [facility] [place] [address] Consulting Physician Urology 06/11/23 Ana Mariee MD PhD [address] [facility] [address] DIV IM [employer] [address] Consulting Physician Medical Oncology 08/17/23 Fina Blackwood NP [address] [place] [address] Nurse Practitioner Medical Oncology 08/17/23
--- OUTSIDE RECORDS SUMMARY | 2024-09-27 14:19 | XMS_ITS | Encounter Summary ---
Author Organization [facility] Address [address] [place] [address] Phone Care Team Providers Care Health Center Assistant Name Role Phone Manolo Crawford MD Unavailable [phone] Manolo Carwford MD Primary Care Provider Breanna Aviles MD Unavailable [phone] Zach Kelly MD Unavailable [phone] Ana Mariee MD PhD Unavailable [phone] Fina Blackwood NP Unavailable [phone] Encounter Details Date Type Department Care Team [...] or neighbors? Three times a week 10/09/19 23 How often do you get togethe r with friends or relatives? Three times a week 10/08/2022 How often do you attend chur or nondenominational services? 1 to 4 times per year 10/08/2022 Do you belong to any clubs o r organizations such as orthodoxy groups, unions, fraternal or athletic groups, or [...] slept in a halfway (including now)? No 10/08/2022 Comments No Sex [...] documented as of this encounter Care Teams Health Center Assistant Relationship Specialty Start Date End Date Manolo Crawford MD [address] [address] PCP - General Internal Medicine 06/17/22 Manolo Crawford MD [address] [address] Referring Physician Internal Medicine 06/16/22 Breanna Aviles MD [address] [address] Medical Oncologist/Plant General Manager Medical Oncology 10/09/22 Zach Kelly MD [address] [facility] [place] [address] Consulting Physician Urology 06/11/23 Ana Mariee MD PhD [address] [facility] [address] DIV IM [place] [address] Consulting Physician Medical Oncology 08/17/23 Fina Blackwood NP [address] [place] [address] Nurse Practitioner Medical Oncology 08/17/23 documented as of this encounter
--- OUTSIDE RECORDS SUMMARY | 2024-09-27 14:19 | XMS_ITS | Continuity of Care Document ---
Author Organization [facility] Address [address] [place] [address] [address] [place] [address] Phone Care Team Providers Care Pack Operator Name Role Phone Hyde OD, Joce Unavailable Unavailable Advance Directives Directive Yes / No Effective Date File Name No Information Encounters Encounter Description Practice Location Reason(s) For Visit Diagnoses Date Provider Providers Copied on Encounter [facility], [id number] [place] [address] [address], [place], [place], [id number], [place] tel:[phone] [facility] [place] No Information Dec-1 3-200 6 Hyde OD Joce. [address] [facility] [place] , [address], [place], [address], [place]. tel:[phone] Family History Family Member Type Diagnosis Age At Onset No Information Payers Payer name Insurance type Covered democrat ID Authoriza deidre(s) [facility] [id number] Social History Type Description Quantity Date Captured [...]
--- OUTSIDE RECORDS SUMMARY | 2024-09-27 14:19 | XMS_ITS | Continuity of Care Document ---
Author Organization [facility] Address [address] [place] [address] Phone Care Team Providers Care Publication Manager Name Role Phone Leny JAUREGUI MD, Jimmie Unavailable Unavaila ble Procedures Procedure Date Work/medical disability examination BRIAN X-ray exam of knee, 1 or2 views 011 X-ray exam of both knees, standing Prolonged serv, w/o contact, 1st hr Advance Directives Directive Yes / No Effective Date File Name No Information Encounters Encounter Description Practice Location Reason(s) For Visit Diagnoses Date Provider Providers Copied on Encounter Work/medical disability examination [facility] [address], [id number], [place] tel:[phone] [employer] Leny Samuel. [address] [facility] [address], [place], [place], [id number], [place]. tel:[phone] Family History Family Member Type Diagnosis Age At Onset No Information Payers Payer name Insurance type Covered democrat ID Authoriza tion(s) [employer] [id number] Social History Type Description Quantity Date Captured [...]
--- OUTSIDE RECORDS SUMMARY | 2024-09-27 14:19 | XMS_ITS | Clinical Summary ---
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 Gender Identity Not on file Sexual Orientation Not on file Plan of Treatment Health Maintenance Due Date Last Done Comments Hepatitis C Virus (HCV) Screening 1955 TdaP Immunization 1955 Cologuard 1998 Colonoscopy 1998 Colorectal Cancer Screening 1998 Immunochemical Fecal Occult Blood 1998 Zoster Immunization (1 of 2) 2003 SARS-COV-2 Immunization ( season) 2023 12/18/2020, 05/06/2020, 04/08/2020 Influenza Immunization (#1) 10/16/202412/16, 01/04/2019 Respiratory Syncytial Virus (RSV) Immunization (Adult) (1 - 1-dose 75+ series) 2028 Pneumococcal Immunization (5 0+ years) Completed 12/27/2019, 09/05/2018 Hepatitis B Immunization Aged Out No longer eligible based on patient's age to complete this topic Human Papillomavirus (HPV) Immunization Aged Out No longer eligible b ased on patient's age to complete this topic Meningococcal Immunization (ACWY) Aged Out No longer eligible b ased on patient's age to complete this topic Rotavirus Immunization Aged Out No lo nger eligible based on patient's age to complete this topic
== END 2024-09-27 14:17 | disposition home or self-care (01) ==
LOC: ANHIMG 14:17
PROVIDERS: PCP Internal Medicine; Visit Provider Obstetrics & Gynecology
DX: Z78.0 Asymptomatic menopausal state (principal)
CPT/HCPCS: 77080